=== PATIENT | female | born 1930 | race Hispanic/Latino ===

== ENCOUNTER 2018-04-19 04:16 | Inpatient (IN) | payer MEDICARE, OTHER ==
--- NOTE | 2018-04-19 04:26 | Emergency Department Report ---
ED General Adult HPI - General Chief complaint: Dyspnea/Respdistress Stated complaint: SOB/COPD Time Seen by Provider: 04/19/18 04:24 Source: EMS Mode of arrival: Stretcher Limitations: No Limitations - History of Present Illness Initial comments: 87-year-old female with a history of COPD presents with acute onset of shortness of breath. They sent was recently discharged from an outside hospital 15 days ago. Patient was then transitioned to [facility] and then yesterday was transitioning [facility] assisted living. Patient at 12 am yesterday became acutely short of breath and 2 AM was transitioning over to the emergency room for evaluation. Patient upon arrival here was noted be hypotensive. Family later arrived and stated that patient was to receive continuous oxygen therapy which she was not receiving. Currently patient denies any fever or any chest pain. - Related Data Allergies Allergy/AdvReac Type Severity Reaction Status Date / Time codeine AdvReac Hives Verified 04/19/18 04:31 ED Review of Systems ROS: Stated complaint: SOB/COPD Other details as noted in HPI Constitutional: denies: chills, fever Eyes: denies: eye pain, eye discharge, vision change ENT: denies: ear pain, throat pain Respiratory: SOB at rest. denies: cough, shortness of breath, wheezing Cardiovascular: denies: chest pain, palpitations Endocrine: no symptoms reported Gastrointestinal: denies: abdominal pain, nausea, diarrhea Genitourinary: denies: urgency, dysuria, discharge Musculoskeletal: denies: back pain, joint swelling, arthralgia Skin: denies: rash, lesions Neurological: denies: headache, weakness, paresthesias Psychiatric: denies: anxiety, depression Hematological/Lymphatic: denies: easy bleeding, easy bruising ED Physical Exam - General Limitations: No Limitations General appearance: alert, other (frail; dehydrated) - Head Head exam: Present: atraumatic, normocephalic - Eye Eye exam: Present: normal appearance - ENT ENT exam: Present: mucous membranes dry - Neck Neck exam: Present: normal inspection - Respiratory Respiratory exam: Present: other (course breath sounds in the bilateral bases of the lung). Absent: respiratory distress - Cardiovascular Cardiovascular Exam: Present: regular rate, normal rhythm. Absent: systolic murmur, diastolic murmur, rubs, gallop - GI/Abdominal GI/Abdominal exam: Present: soft, normal bowel sounds - Extremities Exam Extremities exam: Present: normal inspection - Back Exam Back exam: Present: normal inspection - Neurological Exam Neurological exam: Present: alert, oriented X3 - Psychiatric Psychiatric exam: Present: normal affect, normal mood - Skin Skin exam: Present: warm, dry, intact, normal color. Absent: rash ED Course Vital Signs 04/19/18 04/19/18 04/19/18 04:02 04:18 04:23 Temperature 98.1 F Pulse Rate 117 H 130 H 121 H Respiratory 26 H 26 H 22 Rate Blood Pressure 86/52 O2 Sat by Pulse 100 100 96 Oximetry 04/19/18 04/19/18 04/19/18 04:31 04:32 04:45 Temperature Pulse Rate 119 H 120 H Respiratory 33 H 26 H 30 H Rate Blood Pressure 101/55 O2 Sat by Pulse 97 100 98 Oximetry 04/19/18 04/19/18 04/19/18 05:00 05:15 05:30 Temperature Pulse Rate 113 H 118 H 112 H Respiratory 19 32 H 30 H Rate Blood Pressure 94/55 108/51 87/49 O2 Sat by Pulse 97 99 99 Oximetry 04/19/18 04/19/18 04/19/18 05:45 06:00 06:15 Temperature Pulse Rate 107 H 109 H 108 H Respiratory 24 30 H 28 H Rate Blood Pressure 113/61 85/50 85/50 O2 Sat by Pulse 100 99 100 Oximetry 04/19/18 06:30 Temperature Pulse Rate 108 H Respiratory 28 H Rate Blood Pressure 96/51 O2 Sat by Pulse 98 Oximetry ED Medical Decision Making - Lab Data Result diagrams: 04/19/18 04:38 04/19/18 04:38 - EKG Data EKG shows normal: sinus rhythm Rate: tachycardia - EKG Data Interpretation: nonspecific ST-T wave caio - Medical Decision Making Patient to be admitted to the hospitalist service for continued management and treatment. Patient was noted to be hypotensive initially on arrival and responded with MAP >65 with administration of IV fluids. Pateint was also noted to have the presence of UTI. Patient received ceftriaxone therapy while in the emergency department. Patient also given supplemental oxygen by nasal cannula while in the emergency department. - Differential Diagnosis pneumonia; electrolyte abnormality; anemia; COPD exacerbation Critical care attestation.: If time is entered above; I have spent that time in minutes in the direct care of this critically ill patient, excluding procedure time. ED Disposition Clinical Impression: COPD exacerbation, UTI (urinary tract infection), Hypotension Disposition: DC-09 OP ADMIT IP TO THIS HOSP Is pt being admited?: Yes Condition: Fair Instructions: Chronic Obstructive Pulmonary Disease (ED) Referrals: NESHA FRIEDMAN MD [Primary Care Provider] - 3-5 Days Time of Disposition: 07:05 Print Language: SERBIAN
[2018-04-19] MEDS ORDERED: NACL 0.9% 1000 ML 1,000 ML ONE (04:29)
[2018-04-19] MEDS ORDERED: NACL 0.9% 500 ML 500 ML IV ONE (04:31)
[2018-04-19] MEDS ORDERED: NACL 0.9% 1000 ML 1,000 ML IV ONE (04:40)
[2018-04-19 04:58] LABS: Basophils % (Auto) 0.3 % (0.0-1.8); Eosinophils % (Auto) 0.1 % (0.0-4.3); Hematocrit 31.8 % (30.3-42.9); Hemoglobin 10.1 gm/dl (10.1-14.3); Lymphocytes # (Auto) 0.6 K/mm3 (1.2-5.4); Lymphocytes % (Auto) 7.7 % (13.4-35.0); Mean Corpuscular HGB Conc 32 % (30-34); Mean Corpuscular Volume 97 fl (79-97); Monocytes # (Auto) 0.5 K/mm3 (0.0-0.8); Monocytes % (Auto) 6.8 % (0.0-7.3); Platelet Count 223 K/mm3 (140-440); Red Blood Count 3.27 M/mm3 (3.65-5.03); Red Cell Distribution Width 14.6 % (13.2-15.2)
[2018-04-19 05:11] LABS: INR 1.04 (0.87-1.13)
[2018-04-19 05:19] LABS: Alanine Aminotransferase 21 units/L (7-56); Albumin 2.7 g/dL (3.9-5); BUN/Creatinine Ratio 14; Blood Urea Nitrogen 11 mg/dL (7-17); Calcium 8.3 mg/dL (8.4-10.2); Hemolysis Index 10
[2018-04-19 05:39] LABS: Bacteria,Urine 2+ /HPF (Negative); Bilirubin,Urine NEG (Negative); Blood,Urine NEG (Negative); Color,Urine Yellow (Yellow); Hyaline Casts,Urine 13 /LPF; Mucus,Urine FEW /HPF; Protein,Urine <15 mg/dL mg/dL (Negative); Urobilinogen,Urine < 2.0 mg/dL (<2.0)
[2018-04-19] MEDS ORDERED: XYLOCAINE 1% MPF 5 mL INFILTRATI ONE (06:05)
--- NOTE | 2018-04-19 06:07 | XRay Report ---
FINAL REPORT EXAM: XR CHEST 1V AP HISTORY: possible Sepsis TECHNIQUE: AP portable view(s) of the chest obtained. PRIORS: None. FINDINGS: Patient is rotated. No mediastinal shift. Cardiac silhouette is not enlarged. Elevated right hemidiap hragm. Predominantly linear right basilar atelectasis versus scarring. No pneumothorax or effusion. N o displaced fracture. IMPRESSION: No acute pulmonary finding identified. Consider additional imaging for worsening/persistent symptoms.
[2018-04-19] MEDS ORDERED: VANCOMYCIN/NS 1 GM/250 ML 1 GM/250 ML BAG IV ONE ×2 (06:32→08:00)
[2018-04-19] MEDS ORDERED: ZOFRAN IV PRN (06:33)
[2018-04-19] MEDS ORDERED: SODIUM CHLORIDE FLUSH SYRINGE 10 ML IV PRN (06:33)
--- NOTE | 2018-04-19 06:41 | History and Physical Report ---
History of Present Illness Date of examination: 04/19/18 History of present illness: 87-year-old woman with a history of COPD comes emergency room because she woke up from sleep short of breath. Daughter at bedside state that she was in the hospital 10 days at [facility], she was discharged to rehabilitation for 2 weeks and then transferred to the assisted living yesterday. On Tuesday she was diagnosed with a urinary tract infection and treated for 3 days. Patient came in hypotensive with systolic blood pressure of 85, she was given IV fluids to which she responded Review of systems Constitutional: no weight loss, chills, fever Ears, eyes, nose, mouth and throat: no nasal congestion, no nasal discharge, no sinus pressure, no vision change, no red eye. Neck: No neck pain or rigidity. Cardiovascular: no palpitations, chest pain Respiratory: no cough Gastrointestinal: no hematochezia, abdominal pain Genitourinary : no frequency , no hematuria Musculoskeletal: no joint swelling or muscle ache Integumentary: no rash, no pruritis Neurological: no parathesias, no focal weakness Endocrine: no cold or heat intolerance, no polyuria or polydipsia Hematologic/Lymphatic: no easy bruising, no easy bleeding, no gland swelling Allergic/Immunologic: no urticaria, no angioedema. PAST MEDICAL HISTORY:COPD PAST SURGICAL HISTORY: Appendectomy, cyst removed from uterus SOCIAL HISTORY: Denies alcohol, drugs, quit tobacco use tobacco FAMILY HISTORY: Hypertension Medications and Allergies Allergies Allergy/AdvReac Type Severity Reaction Status Date / Time codeine AdvReac Hives Verified 04/19/18 04:31 Active Meds: Active Medications Acetaminophen (Tylenol) 650 mg PO Q4H PRN PRN Reason: Pain MILD(1-3)/Fever >100.5/BOWMAN Enoxaparin Sodium (Lovenox) 30 mg SUB-Q QDAY HARLEY Ceftriaxone Sodium (Rocephin/Ns 1 Gm/50 Ml) 1 gm in 50 mls @ 100 mls/hr IV ONCE ONE Stop: 04/19/18 07:29 Vancomycin HCl (Vancomycin/Ns 1 Gm/250 Ml) 1 gm in 250 mls @ 167.007 mls/hr IV ONCE ONE; Protocol Stop: 04/19/18 08:01 Sodium Chloride (Nacl 0.9% 1000 Ml) 1,000 mls @ 75 mls/hr IV DIRECT HARLEY Piperacillin Sod/Tazobactam Sod (Zosyn/Ns 3.375gm/50ml) 3.375 gm in 50 mls @ 100 mls/hr IV Q8HR HARLEY; Protocol Ondansetron HCl (Zofran) 4 mg IV Q8H PRN PRN Reason: Nausea And Vomiting Sodium Chloride (Sodium Chloride Flush Syringe 10 Ml) 10 ml IV BID HARLEY Sodium Chloride (Sodium Chloride Flush Syringe 10 Ml) 10 ml IV PRN PRN PRN Reason: LINE FLUSH Exam - Physical Exam Narrative exam: General Apperance: The patient lying in bed, breathing comfortable HEENT: Normocephalic, atraumatic. Pupils equally round and reactive to light, EOMI, no sclericterus or JVD or thyromegaly or nodule. , no carotid bruit, mucous membranes moist, no exudate or erythema Heart: S1-S2, regular is rhythm Lungs: Rhonchi bilaterally, breathing comfortable Abdomen: Positive bowel sounds, soft, nontender, nondistended, no organomegaly Extremities: No edema cyanosis clubbing Skin: no rash, nodule, warm and dry Neuro: cranial nerves 2-12 intact, speech is fluent, motor/sensory intact - Constitutional Vitals: Temp Pulse Resp BP Pulse Ox 98.1 F 107 H 24 113/61 100 04/19/18 04:18 04/19/18 05:45 04/19/18 05:45 04/19/18 05:45 04/19/18 05:45 Results - Labs CBC & Chem 7: 04/19/18 04:38 04/19/18 04:38 Labs: Abnormal lab results 04/19/18 04/19/18 04/19/18 Range/Units 04:38 04:38 04:38 RBC 3.27 L (3.65-5.03) M/mm3 Lymph % (Auto) 7.7 L (13.4-35.0) % Lymph # 0.6 L (1.2-5.4) K/mm3 Seg Neutrophils % 85.1 H (40.0-70.0) % VBG pH (7.320-7.420) Sodium 136 L (137-145) mmol/L Glucose 117 H (65-100) mg/dL Lactic Acid 2.10 H* (0.7-2.0) mmol/L Calcium 8.3 L (8.4-10.2) mg/dL Total Protein 5.8 L (6.3-8.2) g/dL Albumin 2.7 L (3.9-5) g/dL Urine WBC (Auto) (0.0-6.0) /HPF 04/19/18 04/19/18 Range/Units 04:38 05:24 RBC (3.65-5.03) M/mm3 Lymph % (Auto) (13.4-35.0) % Lymph # (1.2-5.4) K/mm3 Seg Neutrophils % (40.0-70.0) % VBG pH 7.463 H (7.320-7.420) Sodium (137-145) mmol/L Glucose (65-100) mg/dL Lactic Acid (0.7-2.0) mmol/L Calcium (8.4-10.2) mg/dL Total Protein (6.3-8.2) g/dL Albumin (3.9-5) g/dL Urine WBC (Auto) 8.0 H (0.0-6.0) /HPF - Imaging and Cardiology EKG: image reviewed Chest x-ray: report reviewed Assessment and Plan Assessment Septic shock Urinary Tract infection Shortness of breath, rule out PE COPD Plan Admit to medicine Start IV Zosyn, given a dose of vancomycin follow cultures Check CT chest, cardiac enzymes DVT prophylaxis
[2018-04-19] MEDS ORDERED: ZOSYN/NS 3.375GM/50ML 3.375 GM/50 ML BAG IV SCH ×2 (07:00→14:00)
[2018-04-19] MEDS ORDERED: ROCEPHIN/NS 1 GM/50 ML 1 GM/50 ML BAG IV ONE (07:00)
[2018-04-19] MEDS ORDERED: ROCEPHIN 1,000 MG in NACL 0.9% 50 ML IV ONE (07:00)
[2018-04-19 08:19] LABS: Creatine Kinase MB 7.5 ng/mL (0.0-4.0)
[2018-04-19 08:52] LABS: Chol/HDL Ratio 3.21 %
--- NOTE | 2018-04-19 09:54 | Cat Scan Report ---
FINAL REPORT EXAM: CT ANGIO CHEST HISTORY: Shortness of breath TECHNIQUE: CT angiography of the chest performed. IV contrast was administered. Axial images and cor onal and sagittal reformatted images were obtained. MIP reformatted rotational imaging was obtained. PRIORS: None. FINDINGS: There is no aortic dissection seen. There is no significant mediastinal or hilar mass seen. There are no filling defects seen within the pulmonary arterial circulation to suggest pulmonary embo lism. There is a small right pleural effusion. There is right lower lobe consolidation which is worrisome f or pneumonia. There is a 4 mm nodule in the left lower lobe. Significance is doubtful. No further fol low-up needed for Fleischner society guidelines. There is no pneumothorax seen. IMPRESSION: There is no pulmonary embolism or aortic dissection seen. Right lower lobe area of consolidation with small right pleural effusion. Findings are worrisome for pneumonia.
[2018-04-19] MEDS ORDERED: LOVENOX SUB-Q SCH (10:00)
--- NOTE | 2018-04-19 10:57 | Event Note ---
Date: 04/19/18 Patient seen and examined. We'll continue the plan as outlined in H&P. CTA of the chest reveals no PE or aortic dissection. However, findings are suggestive of right lower lobe pneumonia with parapneumonic effusion. Patient meets criteria for sepsis given the tachycardia, tachypnea and diagnosis of pneumonia. Total time = 25 minutes with greater than 50% spent with counseling and correlation of care.
[2018-04-19] MEDS: SODIUM CHLORIDE FLUSH SYRINGE 10 ML IV SCH ×2 (11:49→21:18)
[2018-04-19] MEDS: LOVENOX SUB-Q SCH (13:07)
[2018-04-19 13:12] LABS: Creatine Kinase MB 10.4 ng/mL (0.0-4.0)
[2018-04-19] MEDS ORDERED: DUONEB *Not for PRN Use IH ONE (13:31)
--- NOTE | 2018-04-19 15:35 | Consultation ---
History of Present Illness Consult date: 04/19/18 Requesting physician: GIACOMO LEON Consult reason: abnormal cardiac enzymes History of present illness: The pt is an 87-year-old female with a history of COPD. She is previously unknown to our practice. She is lethargic with no family at bedside on evaluation and thus most of HPI is obtained per the chart. She presented with complaints of SOB. presents with acute onset of shortness of breath. She was recently discharged from an outside hospital 15 days ago. Patient was then transitioned to [facility] and then was transitioning to [facility] when she became acutely short of breath and 2 AM was transitioned over to the emergency room for evaluation. Since admission, pt has been diagnosed with PNA, sepsis, hypotension. She was found to have elevated cardiac enzymes and thus cardiology has been consulted. Pt denies any chest pain. Past History Past Medical History: COPD Medications and Allergies Allergies Allergy/AdvReac Type Severity Reaction Status Date / Time codeine AdvReac Hives Verified 04/19/18 04:31 Home Medications Medication Instructions Recorded Confirmed Last Taken Type Albuterol 1.25 mg IH Q4-6H PRN 04/19/18 04/19/18 04/18/18 10:00 History Budesonide [Pulmicort] 0.5 mg IH BID 04/19/18 04/19/18 04/19/18 00:00 History DUONEB *Not for PRN Use* 1 ampul INHALATION QID 04/19/18 04/19/18 04/19/18 02:00 History Furosemide [Lasix TAB] 20 mg PO DAILY 04/19/18 04/19/18 04/18/18 09:00 History Levothyroxine [Synthroid] 75 mcg PO QAM 04/19/18 04/19/18 04/18/18 06:30 History Active Meds: Active Medications Acetaminophen (Tylenol) 650 mg PO Q4H PRN PRN Reason: Pain MILD(1-3)/Fever >100.5/BOWMAN Albuterol (Proventil) 2.5 mg IH PRN PRN PRN Reason: Shortness Of Breath Albuterol/Ipratropium (Duoneb *Not For Prn Use*) 1 ampul IH QIDRT HARLEY Budesonide (Pulmicort) 0.25 mg IH Q12HRT HARLEY Enoxaparin Sodium (Lovenox) 40 mg SUB-Q QDAY@1000 HARLEY Last Admin: 04/19/18 13:07 Dose: Not Given Documented by: Sodium Chloride (Nacl 0.9% 1000 Ml) 1,000 mls @ 75 mls/hr IV DIRECT [facility] Piperacillin Sod/Tazobactam Sod (Zosyn/Ns 3.375gm/50ml) 3.375 gm in 50 mls @ 100 mls/hr IV Q8HR [facility] Ondansetron HCl (Zofran) 4 mg IV Q8H PRN PRN Reason: Nausea And Vomiting Sodium Chloride (Sodium Chloride Flush Syringe 10 Ml) 10 ml IV BID [facility] Last Admin: 04/19/18 11:49 Dose: 10 ml Documented by: Sodium Chloride (Sodium Chloride Flush Syringe 10 Ml) 10 ml IV PRN PRN PRN Reason: LINE FLUSH Review of Systems ROS unobtainable: due to mental status Cardiovascular: no chest pain Physical Examination Vital Signs Pulse Resp Pulse Ox 117 H 26 H 100 04/19/18 04:02 04/19/18 04:02 04/19/18 04:02 General appearance: other (lethargic) HEENT: Positive: PERRL Neck: Positive: neck supple, trachea midline Cardiac: Positive: Regular Rhythm, S1/S2 Lungs: Positive: Decreased Breath Sounds, Rhonchi Neuro: Positive: Other (lethargic) Abdomen: Negative: Tender Skin: Negative: Rash, Wound Musculoskeletal: No Pain Extremities: Absent: edema Results 04/19/18 04:38 04/19/18 04:38 Cardiac Enzymes 04/19/18 04/19/18 04/19/18 Range/Units 04:38 04:38 12:24 AST 37 (5-40) units/L CK-MB (CK-2) 7.5 H 10.4 H (0.0-4.0) ng/mL Coagulation 04/19/18 Range/Units 04:38 PT 14.0 (12.2-14.9) Sec. INR 1.04 (0.87-1.13) Lipids 04/19/18 Range/Units 04:38 Triglycerides 72 (2-149) mg/dL Cholesterol 122 (50-199) mg/dL HDL Cholesterol 38 L (40-59) mg/dL Cholesterol/HDL Ratio 3.21 % CBC 04/19/18 Range/Units 04:38 WBC 7.7 (4.5-11.0) K/mm3 RBC 3.27 L (3.65-5.03) M/mm3 Hgb 10.1 (10.1-14.3) gm/dl Hct 31.8 (30.3-42.9) % Plt Count 223 (140-440) K/mm3 Lymph # 0.6 L (1.2-5.4) K/mm3 [place] # 0.5 (0.0-0.8) K/mm3 Eos # 0.0 (0.0-0.4) K/mm3 Baso # 0.0 (0.0-0.1) K/mm3 Comprehensive Metabolic Panel 04/19/18 Range/Units 04:38 Sodium 136 L (137-145) mmol/L Potassium 4.8 (3.6-5.0) mmol/L Chloride 98.6 (98-107) mmol/L Carbon Dioxide 26 (22-30) mmol/L BUN 11 (7-17) mg/dL Creatinine 0.8 (0.7-1.2) mg/dL Glucose 117 H (65-100) mg/dL Calcium 8.3 L (8.4-10.2) mg/dL AST 37 (5-40) units/L ALT 21 (7-56) units/L Alkaline Phosphatase 76 (35-129) units/L Total Protein 5.8 L (6.3-8.2) g/dL Albumin 2.7 L (3.9-5) g/dL - Imaging and Cardiology Echo: pending EKG: report reviewed, image reviewed EKG interpretations - Telemetry EKG Rhythm: Sinus Rhythm - EKG Sinus rhythms and dysrhythmias: sinus rhythm Assessment and Plan Pt denies chest pain, ECG with no acute ischemic changes. Repeat Carol and ECG in AM. CE elevation appears c/w NSTEMI type II at this time. IVF and abx per primary. Consider vasopressor support to maintain MAP >60mmHg. Obtain echo. The patient has been seen in conjunction with Dr. ELISABETH Gonzalez who agrees with the assessment and plan of care. - Patient Problems (1) Pneumonia Current Visit: Yes Status: Acute (2) Sepsis Current Visit: Yes Status: Suspected (3) Hypotension Current Visit: Yes Status: Acute (4) Altered mental status Current Visit: Yes Status: Acute (5) NSTEMI (non-ST elevated myocardial infarction) Current Visit: Yes Status: Acute (6) COPD (chronic obstructive pulmonary disease) Current Visit: Yes Status: Chronic
[2018-04-19] MEDS: NACL 0.9% 1000 ML 1,000 ML IV SCH (16:23)
[2018-04-19] MEDS: ZOSYN/NS 3.375GM/50ML 3.375 GM/50 ML BAG IV SCH ×2 (16:24→21:18)
[2018-04-19] MEDS: DUONEB *Not for PRN Use IH SCH ×2 (18:08→21:32)
[2018-04-19] MEDS: TYLENOL PO PRN (21:20)
[2018-04-19] MEDS: PULMICORT IH SCH (21:32)
[2018-04-20] MEDS ORDERED: NACL 0.9% 500 ML 500 ML ONE (03:21)
[2018-04-20] MEDS: PROVENTIL IH PRN (04:45)
[2018-04-20 05:16] LABS: Hematocrit 30.1 % (30.3-42.9); Hemoglobin 9.8 gm/dl (10.1-14.3); Mean Corpuscular HGB Conc 33 % (30-34); Mean Corpuscular Volume 94 fl (79-97); Platelet Count 218 K/mm3 (140-440); Red Cell Distribution Width 14.4 % (13.2-15.2)
[2018-04-20 05:34] LABS: Creatine Kinase MB 11.7 ng/mL (0.0-4.0)
[2018-04-20 05:36] LABS: BUN/Creatinine Ratio 13; Blood Urea Nitrogen 8 mg/dL (7-17); Calcium 7.9 mg/dL (8.4-10.2); Hemolysis Index 16
[2018-04-20] MEDS: NACL 0.9% 1000 ML 1,000 ML IV SCH ×2 (05:41→19:06)
[2018-04-20 06:54] LABS: Band Neutrophils # (Manual) 0.1 K/mm3; Basophils % (Manual) 0 % (0.0-1.8); Eosinophils % (Manual) 0 % (0.0-4.3); Total Cells Counted 100
[2018-04-20 06:55] LABS: Anisocytosis 1+; Hypochromasia 1+
[2018-04-20] MEDS: DUONEB *Not for PRN Use IH SCH ×4 (09:30→21:05)
[2018-04-20] MEDS: PULMICORT IH SCH (09:56)
[2018-04-20] MEDS: LOVENOX SUB-Q SCH (11:10)
[2018-04-20] MEDS: ZOSYN/NS 3.375GM/50ML 3.375 GM/50 ML BAG IV SCH ×2 (11:11→22:41)
--- NOTE | 2018-04-20 12:53 | Progress Note ---
Assessment and Plan Assessment and plan: Sepsis. Present on admission. Patient is criteria given the tachycardia, tachypnea and diagnosis of pneumonia. Continue sepsis pathway and follow-up blood cultures. Right lower lobe pneumonia with parapneumonic effusion. Continue IV antibiotics. Speech therapy evaluation. Follow up serial chest x-ray NSTEMI type II. Etiology secondary to above. Continue to follow repeat cardiac isoenzymes and EKG. Initial EKG shows no acute ischemic changes. Follow-up echocardiogram. Cardiology following. Acute hypoxemic respiratory failure. CTA of chest is negative for PE. Etiology secondary to pneumonia/pleural effusion. Continue O2 and supportive care. Acute COPD exacerbation. Continue systemic and inhaled steroids, bronchodilators and breathing treatments. Toxic metabolic encephalopathy. Continue to treat underlying causes. History Interval history: The pt is an 87-year-old female with a history of COPD. She is previously unknown to our practice. She is lethargic with no family at bedside on evaluation and thus most of HPI is obtained per the chart. She presented with complaints of SOB. presents with acute onset of shortness of breath. She was recently discharged from an outside hospital 15 days ago. Patient was then transitioned to [facility] and then was transitioning to [facility] assisted living when she became acutely short of breath and 2 AM was transitioned over to the emergency room for evaluation. Since admission, pt has been diagnosed with PNA, sepsis, hypotension. She was found to have elevated cardiac enzymes and thus cardiology has been consulted. Patient denies any complaints. No new issues overnight. Hospitalist Physical - Constitutional Vitals: Temp Pulse Resp BP Pulse Ox 97.4 F L 112 H 28 H 86/52 98 04/20/18 12:26 04/20/18 10:10 04/20/18 10:10 04/19/18 15:50 04/20/18 09:31 General appearance: Present: other (lethargic) - EENT Eyes: Present: PERRL, EOM intact ENT: hearing intact, clear oral mucosa, dentition normal - Neck Neck: Present: supple, normal ROM - Respiratory Respiratory effort: normal Respiratory: bilateral: diminished, rhonchi, wheezing - Cardiovascular Rhythm: regular Heart Sounds: Present: S1 & S2. Absent: gallop, rub - Extremities Extremities: no ischemia, No edema, Full ROM - Abdominal General gastrointestinal: soft, non-tender, non-distended, normal bowel sounds - Integumentary Integumentary: Present: clear, warm, dry - Neurologic Neurologic: CNII-XII intact, moves all extremities Results - Labs CBC & Chem 7: 04/20/18 04:25 04/20/18 04:25 Labs: Laboratory Last Values WBC 4.8 K/mm3 (4.5-11.0) 04/20/18 04:25 RBC 3.20 M/mm3 (3.65-5.03) L 04/20/18 04:25 Hgb 9.8 gm/dl (10.1-14.3) L 04/20/18 04:25 Hct 30.1 % (30.3-42.9) L 04/20/18 04:25 MCV 94 fl (79-97) 04/20/18 04:25 MCH 31 pg (28-32) 04/20/18 04:25 MCHC 33 % (30-34) 04/20/18 04:25 RDW 14.4 % (13.2-15.2) 04/20/18 04:25 Plt Count 218 K/mm3 (140-440) 04/20/18 04:25 Lymph % (Auto) 7.7 % (13.4-35.0) L 04/19/18 04:38 [place] % (Auto) 6.8 % (0.0-7.3) 04/19/18 04:38 Eos % (Auto) 0.1 % (0.0-4.3) 04/19/18 04:38 Baso % (Auto) 0.3 % (0.0-1.8) 04/19/18 04:38 Lymph # 0.6 K/mm3 (1.2-5.4) L 04/19/18 04:38 [place] # 0.5 K/mm3 (0.0-0.8) 04/19/18 04:38 Eos # 0.0 K/mm3 (0.0-0.4) 04/19/18 04:38 Baso # 0.0 K/mm3 (0.0-0.1) 04/19/18 04:38 Add Manual Diff Complete 04/20/18 04:25 Total Counted 100 04/20/18 04:25 Seg Neutrophils % 85.1 % (40.0-70.0) H 04/19/18 04:38 Seg Neuts % (Manual) 58.0 % (40.0-70.0) 04/20/18 04:25 Band Neutrophils % 3.0 % 04/20/18 04:25 Lymphocytes % (Manual) 32.0 % (13.4-35.0) 04/20/18 04:25 Reactive Lymphs % (Man) 0 % 04/20/18 04:25 Monocytes % (Manual) 7.0 % (0.0-7.3) 04/20/18 04:25 Eosinophils % (Manual) 0 % (0.0-4.3) 04/20/18 04:25 Basophils % (Manual) 0 % (0.0-1.8) 04/20/18 04:25 Metamyelocytes % 0 % 04/20/18 04:25 Myelocytes % 0 % 04/20/18 04:25 Promyelocytes % 0 % 04/20/18 04:25 Blast Cells % 0 % 04/20/18 04:25 Nucleated RBC % Not Reportable 04/20/18 04:25 Seg Neutrophils # 6.6 K/mm3 (1.8-7.7) 04/19/18 04:38 Seg Neutrophils # Man 2.8 K/mm3 (1.8-7.7) 04/20/18 04:25 Band Neutrophils # 0.1 K/mm3 04/20/18 04:25 Lymphocytes # (Manual) 1.5 K/mm3 (1.2-5.4) 04/20/18 04:25 Abs React Lymphs (Man) 0.0 K/mm3 04/20/18 04:25 Monocytes # (Manual) 0.3 K/mm3 (0.0-0.8) 04/20/18 04:25 Eosinophils # (Manual) 0.0 K/mm3 (0.0-0.4) 04/20/18 04:25 Basophils # (Manual) 0.0 K/mm3 (0.0-0.1) 04/20/18 04:25 Metamyelocytes # 0.0 K/mm3 04/20/18 04:25 Myelocytes # 0.0 K/mm3 04/20/18 04:25 Promyelocytes # 0.0 K/mm3 04/20/18 04:25 Blast Cells # 0.0 K/mm3 04/20/18 04:25 WBC Morphology Not Reportable 04/20/18 04:25 Hypersegmented Neuts Not Reportable 04/20/18 04:25 Hyposegmented Neuts Not Reportable 04/20/18 04:25 Hypogranular Neuts Not Reportable 04/20/18 04:25 Smudge Cells Not Reportable 04/20/18 04:25 Toxic Granulation Not Reportable 04/20/18 04:25 Toxic Vacuolation Not Reportable 04/20/18 04:25 Dohle Bodies Not Reportable 04/20/18 04:25 Pelger-Huet Anomaly Not Reportable 04/20/18 04:25 Juan Alberto Rods Not Reportable 04/20/18 04:25 Platelet Estimate Appears normal 04/20/18 04:25 Clumped Platelets Not Reportable 04/20/18 04:25 Plt Clumps, EDTA Not Reportable 04/20/18 04:25 Large Platelets Not Reportable 04/20/18 04:25 Giant Platelets Not Reportable 04/20/18 04:25 Platelet Satelliting Not Reportable 04/20/18 04:25 Plt Morphology Comment Not Reportable 04/20/18 04:25 RBC Morphology Not Reportable 04/20/18 04:25 Dimorphic RBCs Not Reportable 04/20/18 04:25 Polychromasia Not Reportable 04/20/18 04:25 Hypochromasia 1+ 04/20/18 04:25 Poikilocytosis Not Reportable 04/20/18 04:25 Anisocytosis 1+ 04/20/18 04:25 Microcytosis Not Reportable 04/20/18 04:25 Macrocytosis Not Reportable 04/20/18 04:25 Spherocytes Not Reportable 04/20/18 04:25 Pappenheimer Bodies Not Reportable 04/20/18 04:25 Sickle Cells Not Reportable 04/20/18 04:25 Target Cells Not Reportable 04/20/18 04:25 Tear Drop Cells Not Reportable 04/20/18 04:25 Ovalocytes Not Reportable 04/20/18 04:25 Helmet Cells Not Reportable 04/20/18 04:25 [place] Bodies Not Reportable 04/20/18 04:25 [place] Rings Not Reportable 04/20/18 04:25 [place] Cells Not Reportable 04/20/18 04:25 Bite Cells Not Reportable 04/20/18 04:25 Crenated Cell Not Reportable 04/20/18 04:25 Elliptocytes Not Reportable 04/20/18 04:25 Acanthocytes (Spur) Not Reportable 04/20/18 04:25 Rouleaux Not Reportable 04/20/18 04:25 Hemoglobin C Crystals Not Reportable 04/20/18 04:25 Schistocytes Not Reportable 04/20/18 04:25 Malaria parasites Not Reportable 04/20/18 04:25 Adonay Bodies Not Reportable 04/20/18 04:25 Hem Pathologist Commnt No 04/20/18 04:25 PT 14.0 Sec. (12.2-14.9) 04/19/18 04:38 INR 1.04 (0.87-1.13) 04/19/18 04:38 VBG pH 7.463 (7.320-7.420) H 04/19/18 04:38 Sodium 139 mmol/L (137-145) 04/20/18 04:25 Potassium 4.4 mmol/L (3.6-5.0) 04/20/18 04:25 Chloride 106.8 mmol/L (98-107) 04/20/18 04:25 Carbon Dioxide 22 mmol/L (22-30) 04/20/18 04:25 Anion Gap 15 mmol/L 04/20/18 04:25 BUN 8 mg/dL (7-17) 04/20/18 04:25 Creatinine 0.6 mg/dL (0.7-1.2) L 04/20/18 04:25 Estimated GFR > 60 ml/min 04/20/18 04:25 BUN/Creatinine Ratio 13 % 04/20/18 04:25 Glucose 83 mg/dL (65-100) 04/20/18 04:25 Lactic Acid 1.10 mmol/L (0.7-2.0) 04/19/18 12:24 Calcium 7.9 mg/dL (8.4-10.2) L 04/20/18 04:25 Total Bilirubin 0.20 mg/dL (0.1-1.2) 04/19/18 04:38 AST 37 units/L (5-40) 04/19/18 04:38 ALT 21 units/L (7-56) 04/19/18 04:38 Alkaline Phosphatase 76 units/L (35-129) 04/19/18 04:38 Total Creatine Kinase 66 units/L (30-135) 04/20/18 04:25 CK-MB (CK-2) 11.7 ng/mL (0.0-4.0) H 04/20/18 04:25 CK-MB (CK-2) Rel Index 17.7 (0-4) H 04/20/18 04:25 Troponin T 0.271 ng/mL (0.00-0.029) H* D 04/20/18 04:25 Total Protein 5.8 g/dL (6.3-8.2) L 04/19/18 04:38 Albumin 2.7 g/dL (3.9-5) L 04/19/18 04:38 Albumin/Globulin Ratio 0.9 % 04/19/18 04:38 Triglycerides 72 mg/dL (2-149) 04/19/18 04:38 Cholesterol 122 mg/dL (50-199) 04/19/18 04:38 LDL Cholesterol Direct 81 mg/dL (50-130) 04/19/18 04:38 HDL Cholesterol 38 mg/dL (40-59) L 04/19/18 04:38 Cholesterol/HDL Ratio 3.21 % 04/19/18 04:38 Urine Color Yellow (Yellow) 04/19/18 05:24 Urine Turbidity Clear (Clear) 04/19/18 05:24 Urine pH 5.0 (5.0-7.0) 04/19/18 05:24 Ur Specific [place] 1.014 (1.003-1.030) 04/19/18 05:24 Urine Protein <15 mg/dl mg/dL (Negative) 04/19/18 05:24 Urine Glucose (UA) Neg mg/dL (Negative) 04/19/18 05:24 Urine Ketones Neg mg/dL (Negative) 04/19/18 05:24 Urine Blood Neg (Negative) 04/19/18 05:24 Urine Nitrite Neg (Negative) 04/19/18 05:24 Urine Bilirubin Neg (Negative) 04/19/18 05:24 Urine Urobilinogen < 2.0 mg/dL (<2.0) 04/19/18 05:24 Ur Leukocyte Esterase Tr (Negative) 04/19/18 05:24 Urine WBC (Auto) 8.0 /HPF (0.0-6.0) H 04/19/18 05:24 Urine RBC (Auto) 3.0 /HPF (0.0-6.0) 04/19/18 05:24 U Epithel Cells (Auto) 1.0 /HPF (0-13.0) 04/19/18 05:24 Urine Bacteria (Auto) 2+ /HPF (Negative) 04/19/18 05:24 Hyaline Casts 13 /LPF 04/19/18 05:24 Urine Mucus Few /HPF 04/19/18 05:24
--- NOTE | 2018-04-20 12:58 | Progress Note ---
Assessment and Plan Cont present cardiac management. Await echo. The patient has been seen in conjunction with Dr. Tierra Gonzalez who agrees with the assessment and plan of care. - Patient Problems (1) Pneumonia Current Visit: Yes Status: Acute (2) Sepsis Current Visit: Yes Status: Suspected (3) Hypotension Current Visit: Yes Status: Acute (4) Altered mental status Current Visit: Yes Status: Acute (5) NSTEMI (non-ST elevated myocardial infarction) Current Visit: Yes Status: Acute (6) COPD (chronic obstructive pulmonary disease) Current Visit: Yes Status: Chronic Subjective Date of service: 04/20/18 Principal diagnosis: PNA Interval history: pt resting in bed, appears more alert today. no current cardiac complaints. Objective Last Vital Signs Temp 97.4 F L 04/20/18 12:26 Pulse 112 H 04/20/18 10:10 Resp 28 H 04/20/18 10:10 BP 86/52 04/19/18 15:50 Pulse Ox 98 04/20/18 09:31 - Physical Examination General: No Apparent Distress HEENT: Positive: PERRL Neck: Positive: neck supple, trachea midline Cardiac: Positive: Reg Rate and Rhythm, S1/S2 Lungs: Positive: Decreased Breath Sounds Neuro: Positive: Other (lethargic) Abdomen: Negative: Tender Skin: Negative: Rash, Wound Musculoskeletal: No Pain Extremities: Absent: edema - Labs and Meds Cardiac Enzymes 04/19/18 04/20/18 Range/Units 12:24 04:25 CK-MB (CK-2) 10.4 H 11.7 H (0.0-4.0) ng/mL CBC 04/20/18 Range/Units 04:25 WBC 4.8 (4.5-11.0) K/mm3 RBC 3.20 L (3.65-5.03) M/mm3 Hgb 9.8 L (10.1-14.3) gm/dl Hct 30.1 L (30.3-42.9) % Plt Count 218 (140-440) K/mm3 Comprehensive Metabolic Panel 04/20/18 Range/Units 04:25 Sodium 139 (137-145) mmol/L Potassium 4.4 (3.6-5.0) mmol/L Chloride 106.8 (98-107) mmol/L Carbon Dioxide 22 (22-30) mmol/L BUN 8 (7-17) mg/dL Creatinine 0.6 L (0.7-1.2) mg/dL Glucose 83 (65-100) mg/dL Calcium 7.9 L (8.4-10.2) mg/dL - Imaging and Cardiology EKG: report reviewed, image reviewed Echo: pending - EKG Sinus rhythms and dysrhythmias: sinus rhythm
[2018-04-20] MEDS: SOLU-Medrol IV SCH ×2 (17:57→22:41)
[2018-04-20] MEDS: SODIUM CHLORIDE FLUSH SYRINGE 10 ML IV SCH ×2 (18:00→22:42)
[2018-04-20] MEDS ORDERED: PULMICORT IH SCH (22:00)
[2018-04-21] MEDS: PULMICORT IH SCH ×3 (02:45→20:48)
[2018-04-21] MEDS ORDERED: LASIX IV NR (03:04)
[2018-04-21] MEDS ORDERED: ATIVAN IV NR (03:05)
--- NOTE | 2018-04-21 03:14 | XRay Report ---
FINAL REPORT PROCEDURE: XR CHEST 1V AP TECHNIQUE: Chest radiograph anteroposterior view. CPT 37253 HISTORY: SOB COMPARISON: 04/19/2018 FINDINGS: Heart: Normal. Mediastinum/Vessels: Normal. Lungs/Pleural space: There are infiltrates at the right lung base. There is a small right pleural eff usion.. The left lung is clear and expanded. There are no pneumothoraces. Bony thorax: No acute osseous abnormality. Life support devices: None. IMPRESSION: The heart size is normal. There are infiltrates at the right lung base. There is a small right pleural effusion.. The left lung is clear and expanded. There are no pneumothoraces.
[2018-04-21 04:49] LABS: Hematocrit 31.9 % (30.3-42.9); Hemoglobin 10.4 gm/dl (10.1-14.3); Mean Corpuscular HGB Conc 33 % (30-34); Mean Corpuscular Volume 96 fl (79-97); Platelet Count 261 K/mm3 (140-440); Red Blood Count 3.34 M/mm3 (3.65-5.03)
[2018-04-21 05:09] LABS: BUN/Creatinine Ratio 10; Blood Urea Nitrogen 8 mg/dL (7-17); Calcium 8.2 mg/dL (8.4-10.2); Hemolysis Index 7
[2018-04-21 05:37] LABS: Band Neutrophils # (Manual) 0.4 K/mm3; Basophils % (Manual) 0 % (0.0-1.8); Eosinophils % (Manual) 0 % (0.0-4.3); Total Cells Counted 100
[2018-04-21 05:38] LABS: Anisocytosis 1+; Hypochromasia 1+; Large Platelets Rare
[2018-04-21] MEDS: ZOSYN/NS 3.375GM/50ML 3.375 GM/50 ML BAG IV SCH ×6 (06:31→22:15)
[2018-04-21] MEDS: SYNTHROID PO SCH (06:31)
[2018-04-21] MEDS: SOLU-Medrol IV SCH ×3 (06:31→22:09)
[2018-04-21] MEDS: DUONEB *Not for PRN Use IH SCH ×4 (08:46→20:48)
[2018-04-21] MEDS: SODIUM CHLORIDE FLUSH SYRINGE 10 ML IV SCH ×2 (10:18→22:10)
[2018-04-21] MEDS: LOVENOX SUB-Q SCH (10:18)
--- NOTE | 2018-04-21 12:31 | Progress Note ---
Assessment and Plan Assessment and plan: Sepsis. Present on admission. Patient is criteria given the tachycardia, tachypnea and diagnosis of pneumonia. Continue sepsis pathway and follow-up blood cultures. Right lower lobe pneumonia with parapneumonic effusion. Continue IV antibiotics. Speech therapy evaluation. Follow up serial chest x-ray NSTEMI type II. Etiology secondary to above. Continue to follow repeat cardiac isoenzymes and EKG. Initial EKG shows no acute ischemic changes. Follow-up echocardiogram. Cardiology following. Acute hypoxemic respiratory failure. CTA of chest is negative for PE. Etiology secondary to pneumonia/pleural effusion. Continue O2 and supportive care. Acute COPD exacerbation. Continue systemic and inhaled steroids, bronchodilators and breathing treatments. Toxic metabolic encephalopathy. Continue to treat underlying causes. History Interval history: The pt is an 87-year-old female with a history of COPD. She is previously unknown to our practice. She is lethargic with no family at bedside on evaluation and thus most of HPI is obtained per the chart. She presented with complaints of SOB. presents with acute onset of shortness of breath. She was recently discharged from an outside hospital 15 days ago. Patient was then transitioned to [facility] and then was transitioning to [facility] living when she became acutely short of breath and 2 AM was transitioned over to the emergency room for evaluation. Since admission, pt has been diagnosed with PNA, sepsis, hypotension. She was found to have elevated cardiac enzymes and thus cardiology has been consulted. Patient denies any complaints. No new issues overnight. Hospitalist Physical - Constitutional Vitals: Temp Pulse Resp BP Pulse Ox 97.4 F L 116 H 20 142/83 99 04/20/18 12:26 04/21/18 09:02 04/21/18 09:02 04/21/18 09:00 04/21/18 09:00 General appearance: Present: other (lethargic) - EENT Eyes: Present: PERRL, EOM intact ENT: hearing intact, clear oral mucosa, dentition normal - Neck Neck: Present: supple, normal ROM - Respiratory Respiratory effort: normal Respiratory: bilateral: CTA - Cardiovascular Rhythm: regular Heart Sounds: Present: S1 & S2. Absent: gallop, rub - Extremities Extremities: no ischemia, No edema, Full ROM - Abdominal General gastrointestinal: soft, non-tender, non-distended, normal bowel sounds - Integumentary Integumentary: Present: clear, warm, dry - Neurologic Neurologic: CNII-XII intact, moves all extremities Results - Labs CBC & Chem 7: 04/21/18 04:31 04/21/18 04:31 Labs: Laboratory Last Values WBC 2.1 K/mm3 (4.5-11.0) L 04/21/18 04:31 RBC 3.34 M/mm3 (3.65-5.03) L 04/21/18 04:31 Hgb 10.4 gm/dl (10.1-14.3) 04/21/18 04:31 Hct 31.9 % (30.3-42.9) 04/21/18 04:31 MCV 96 fl (79-97) 04/21/18 04:31 MCH 31 pg (28-32) 04/21/18 04:31 MCHC 33 % (30-34) 04/21/18 04:31 RDW 15.0 % (13.2-15.2) 04/21/18 04:31 Plt Count 261 K/mm3 (140-440) 04/21/18 04:31 Lymph % (Auto) 7.7 % (13.4-35.0) L 04/19/18 04:38 [place] % (Auto) 6.8 % (0.0-7.3) 04/19/18 04:38 Eos % (Auto) 0.1 % (0.0-4.3) 04/19/18 04:38 Baso % (Auto) 0.3 % (0.0-1.8) 04/19/18 04:38 Lymph # 0.6 K/mm3 (1.2-5.4) L 04/19/18 04:38 [place] # 0.5 K/mm3 (0.0-0.8) 04/19/18 04:38 Eos # 0.0 K/mm3 (0.0-0.4) 04/19/18 04:38 Baso # 0.0 K/mm3 (0.0-0.1) 04/19/18 04:38 Add Manual Diff Complete 04/21/18 04:31 Total Counted 100 04/21/18 04:31 Seg Neutrophils % 85.1 % (40.0-70.0) H 04/19/18 04:38 Seg Neuts % (Manual) 61.0 % (40.0-70.0) 04/21/18 04:31 Band Neutrophils % 18.0 % 04/21/18 04:31 Lymphocytes % (Manual) 16.0 % (13.4-35.0) 04/21/18 04:31 Reactive Lymphs % (Man) 0 % 04/21/18 04:31 Monocytes % (Manual) 3.0 % (0.0-7.3) 04/21/18 04:31 Eosinophils % (Manual) 0 % (0.0-4.3) 04/21/18 04:31 Basophils % (Manual) 0 % (0.0-1.8) 04/21/18 04:31 Metamyelocytes % 0 % 04/21/18 04:31 Myelocytes % 2.0 % 04/21/18 04:31 Promyelocytes % 0 % 04/21/18 04:31 Blast Cells % 0 % 04/21/18 04:31 Nucleated RBC % Not Reportable 04/21/18 04:31 Seg Neutrophils # 6.6 K/mm3 (1.8-7.7) 04/19/18 04:38 Seg Neutrophils # Man 1.3 K/mm3 (1.8-7.7) L 04/21/18 04:31 Band Neutrophils # 0.4 K/mm3 04/21/18 04:31 Lymphocytes # (Manual) 0.3 K/mm3 (1.2-5.4) L 04/21/18 04:31 Abs React Lymphs (Man) 0.0 K/mm3 04/21/18 04:31 Monocytes # (Manual) 0.1 K/mm3 (0.0-0.8) 04/21/18 04:31 Eosinophils # (Manual) 0.0 K/mm3 (0.0-0.4) 04/21/18 04:31 Basophils # (Manual) 0.0 K/mm3 (0.0-0.1) 04/21/18 04:31 Metamyelocytes # 0.0 K/mm3 04/21/18 04:31 Myelocytes # 0.0 K/mm3 04/21/18 04:31 Promyelocytes # 0.0 K/mm3 04/21/18 04:31 Blast Cells # 0.0 K/mm3 04/21/18 04:31 WBC Morphology Not Reportable 04/21/18 04:31 Hypersegmented Neuts Not Reportable 04/21/18 04:31 Hyposegmented Neuts Not Reportable 04/21/18 04:31 Hypogranular Neuts Not Reportable 04/21/18 04:31 Smudge Cells Not Reportable 04/21/18 04:31 Toxic Granulation Not Reportable 04/21/18 04:31 Toxic Vacuolation Not Reportable 04/21/18 04:31 Dohle Bodies Not Reportable 04/21/18 04:31 Pelger-Huet Anomaly Not Reportable 04/21/18 04:31 Juan Alberto Rods Not Reportable 04/21/18 04:31 Platelet Estimate Appears normal 04/21/18 04:31 Clumped Platelets Not Reportable 04/21/18 04:31 Plt Clumps, EDTA Not Reportable 04/21/18 04:31 Large Platelets Rare 04/21/18 04:31 Giant Platelets Not Reportable 04/21/18 04:31 Platelet Satelliting Not Reportable 04/21/18 04:31 Plt Morphology Comment Not Reportable 04/21/18 04:31 RBC Morphology Not Reportable 04/21/18 04:31 Dimorphic RBCs Not Reportable 04/21/18 04:31 Polychromasia Not Reportable 04/21/18 04:31 Hypochromasia 1+ 04/21/18 04:31 Poikilocytosis Not Reportable 04/21/18 04:31 Anisocytosis 1+ 04/21/18 04:31 Microcytosis Not Reportable 04/21/18 04:31 Macrocytosis Not Reportable 04/21/18 04:31 Spherocytes Not Reportable 04/21/18 04:31 Pappenheimer Bodies Not Reportable 04/21/18 04:31 Sickle Cells Not Reportable 04/21/18 04:31 Target Cells Not Reportable 04/21/18 04:31 Tear Drop Cells Not Reportable 04/21/18 04:31 Ovalocytes Not Reportable 04/21/18 04:31 Helmet Cells Not Reportable 04/21/18 04:31 [place] Bodies Not Reportable 04/21/18 04:31 [place] Rings Not Reportable 04/21/18 04:31 [place] Cells Not Reportable 04/21/18 04:31 Bite Cells Not Reportable 04/21/18 04:31 Crenated Cell Not Reportable 04/21/18 04:31 Elliptocytes Not Reportable 04/21/18 04:31 Acanthocytes (Spur) Not Reportable 04/21/18 04:31 Rouleaux Not Reportable 04/21/18 04:31 Hemoglobin C Crystals Not Reportable 04/21/18 04:31 Schistocytes Not Reportable 04/21/18 04:31 Malaria parasites Not Reportable 04/21/18 04:31 [place]ay Bodies Not Reportable 04/21/18 04:31 Hem Pathologist Commnt No 04/21/18 04:31 PT 14.0 Sec. (12.2-14.9) 04/19/18 04:38 INR 1.04 (0.87-1.13) 04/19/18 04:38 VBG pH 7.463 (7.320-7.420) H 04/19/18 04:38 Sodium 140 mmol/L (137-145) 04/21/18 04:31 Potassium 4.5 mmol/L (3.6-5.0) 04/21/18 04:31 Chloride 107.3 mmol/L (98-107) H 04/21/18 04:31 Carbon Dioxide 21 mmol/L (22-30) L 04/21/18 04:31 Anion Gap 16 mmol/L 04/21/18 04:31 BUN 8 mg/dL (7-17) 04/21/18 04:31 Creatinine 0.8 mg/dL (0.7-1.2) 04/21/18 04:31 Estimated GFR > 60 ml/min 04/21/18 04:31 BUN/Creatinine Ratio 10 % 04/21/18 04:31 Glucose 180 mg/dL (65-100) H 04/21/18 04:31 Lactic Acid 1.10 mmol/L (0.7-2.0) 04/20/18 13:03 Calcium 8.2 mg/dL (8.4-10.2) L 04/21/18 04:31 Total Bilirubin 0.20 mg/dL (0.1-1.2) 04/19/18 04:38 AST 37 units/L (5-40) 04/19/18 04:38 ALT 21 units/L (7-56) 04/19/18 04:38 Alkaline Phosphatase 76 units/L (35-129) 04/19/18 04:38 Total Creatine Kinase 66 units/L (30-135) 04/20/18 04:25 CK-MB (CK-2) 11.7 ng/mL (0.0-4.0) H 04/20/18 04:25 CK-MB (CK-2) Rel Index 17.7 (0-4) H 04/20/18 04:25 Troponin T 0.271 ng/mL (0.00-0.029) H* D 04/20/18 04:25 Total Protein 5.8 g/dL (6.3-8.2) L 04/19/18 04:38 Albumin 2.7 g/dL (3.9-5) L 04/19/18 04:38 Albumin/Globulin Ratio 0.9 % 04/19/18 04:38 Triglycerides 72 mg/dL (2-149) 04/19/18 04:38 Cholesterol 122 mg/dL (50-199) 04/19/18 04:38 LDL Cholesterol Direct 81 mg/dL (50-130) 04/19/18 04:38 HDL Cholesterol 38 mg/dL (40-59) L 04/19/18 04:38 Cholesterol/HDL Ratio 3.21 % 04/19/18 04:38 Urine Color Yellow (Yellow) 04/19/18 05:24 Urine Turbidity Clear (Clear) 04/19/18 05:24 Urine pH 5.0 (5.0-7.0) 04/19/18 05:24 Ur Specific [place] 1.014 (1.003-1.030) 04/19/18 05:24 Urine Protein <15 mg/dl mg/dL (Negative) 04/19/18 05:24 Urine Glucose (UA) Neg mg/dL (Negative) 04/19/18 05:24 Urine Ketones Neg mg/dL (Negative) 04/19/18 05:24 Urine Blood Neg (Negative) 04/19/18 05:24 Urine Nitrite Neg (Negative) 04/19/18 05:24 Urine Bilirubin Neg (Negative) 04/19/18 05:24 Urine Urobilinogen < 2.0 mg/dL (<2.0) 04/19/18 05:24 Ur Leukocyte Esterase Tr (Negative) 04/19/18 05:24 Urine WBC (Auto) 8.0 /HPF (0.0-6.0) H 04/19/18 05:24 Urine RBC (Auto) 3.0 /HPF (0.0-6.0) 04/19/18 05:24 U Epithel Cells (Auto) 1.0 /HPF (0-13.0) 04/19/18 05:24 Urine Bacteria (Auto) 2+ /HPF (Negative) 04/19/18 05:24 Hyaline Casts 13 /LPF 04/19/18 05:24 Urine Mucus Few /HPF 04/19/18 05:24
--- NOTE | 2018-04-21 13:00 | Progress Note ---
Assessment and Plan Echo reviewed - EF 40-45%, impaired relaxation, mild MR, mod pulm HTN, mild MS. Hypotension improved. Optimze HR and BPs - initiate lopressor in setting of mild CMP. Can consider stress test once medically stabilized as OP. Nothing further to add from cardiac perspective at this time. Will follow on as needed basis. The patient has been seen in conjunction with Dr. Tierra Gonzalez who agrees with the assessment and plan of care. - Patient Problems (1) Pneumonia Current Visit: Yes Status: Acute (2) Sepsis Current Visit: Yes Status: Suspected (3) Hypotension Current Visit: Yes Status: Acute (4) Altered mental status Current Visit: Yes Status: Acute (5) NSTEMI (non-ST elevated myocardial infarction) Current Visit: Yes Status: Acute (6) COPD (chronic obstructive pulmonary disease) Current Visit: Yes Status: Chronic (7) LV dysfunction Current Visit: Yes Status: Chronic Subjective Date of service: 04/21/18 Principal diagnosis: PNA Interval history: pt resting in bed, lethargic, no current cardiac complaints. Objective Last Vital Signs Temp 97.4 F L 04/20/18 12:26 Pulse 116 H 04/21/18 09:02 Resp 20 04/21/18 09:02 BP 142/83 04/21/18 09:00 Pulse Ox 99 04/21/18 09:00 - Physical Examination General: No Apparent Distress HEENT: Positive: PERRL Neck: Positive: neck supple, trachea midline Cardiac: Positive: Reg Rate and Rhythm, S1/S2 Lungs: Positive: clear to auscultation Neuro: Positive: Other (lethargic) Abdomen: Negative: Tender Skin: Negative: Rash, Wound Musculoskeletal: No Pain Extremities: Absent: edema - Labs and Meds CBC 04/21/18 Range/Units 04:31 WBC 2.1 L (4.5-11.0) K/mm3 RBC 3.34 L (3.65-5.03) M/mm3 Hgb 10.4 (10.1-14.3) gm/dl Hct 31.9 (30.3-42.9) % Plt Count 261 (140-440) K/mm3 Comprehensive Metabolic Panel 04/21/18 Range/Units 04:31 Sodium 140 (137-145) mmol/L Potassium 4.5 (3.6-5.0) mmol/L Chloride 107.3 H (98-107) mmol/L Carbon Dioxide 21 L (22-30) mmol/L BUN 8 (7-17) mg/dL Creatinine 0.8 (0.7-1.2) mg/dL Glucose 180 H (65-100) mg/dL Calcium 8.2 L (8.4-10.2) mg/dL - Imaging and Cardiology EKG: report reviewed, image reviewed Echo: pending - EKG Sinus rhythms and dysrhythmias: sinus rhythm
[2018-04-21] MEDS: LOPRESSOR PO SCH (22:10)
[2018-04-22] MEDS: PROVENTIL IH PRN ×2 (00:30→04:30)
[2018-04-22] MEDS: ZOSYN/NS 3.375GM/50ML 3.375 GM/50 ML BAG IV SCH ×3 (05:40→22:35)
[2018-04-22] MEDS: SYNTHROID PO SCH (05:40)
[2018-04-22] MEDS: SOLU-Medrol IV SCH ×3 (05:40→22:35)
[2018-04-22] MEDS: DUONEB *Not for PRN Use IH SCH ×4 (08:48→21:18)
[2018-04-22] MEDS: PULMICORT IH SCH ×2 (09:15→21:18)
[2018-04-22] MEDS: LOVENOX SUB-Q SCH (10:03)
[2018-04-22] MEDS: LOPRESSOR PO SCH ×2 (10:03→22:36)
--- NOTE | 2018-04-22 11:19 | Progress Note ---
Assessment and Plan Assessment and plan: Sepsis. Present on admission. Patient is criteria given the tachycardia, tachypnea and diagnosis of pneumonia. Continue sepsis pathway and follow-up blood cultures. Right lower lobe pneumonia with parapneumonic effusion. Continue IV antibiotics. Speech therapy evaluation. Follow up serial chest x-ray NSTEMI type II. Etiology secondary to above. Continue to follow repeat cardiac isoenzymes and EKG. Initial EKG shows no acute ischemic changes. Echocardiogram reveals EF 40-45%, impaired relaxation, mild MR, mod pulm HTN, mild MS. . Cardiology reports that we Can consider stress test once medically stabilized as OP. Acute hypoxemic respiratory failure. CTA of chest is negative for PE. Etiology secondary to pneumonia/pleural effusion. Continue O2 and supportive care. Acute COPD exacerbation. Continue systemic and inhaled steroids, bronchodilators and breathing treatments. Toxic metabolic encephalopathy. Continue to treat underlying causes. Disposition. Anticipate discharge in a.m. History Interval history: The pt is an 87-year-old female with a history of COPD. She is previously unknown to our practice. She is lethargic with no family at bedside on evaluation and thus most of HPI is obtained per the chart. She presented with complaints of SOB. presents with acute onset of shortness of breath. She was recently discharged from an outside hospital 15 days ago. Patient was then transitioned to [facility] and then was transitioning to [facility] assisted living when she became acutely short of breath and 2 AM was transitioned over to the emergency room for evaluation. Since admission, pt has been diagnosed with PNA, sepsis, hypotension. She was found to have elevated cardiac enzymes and thus cardiology has been consulted. Patient denies any complaints. No new issues overnight. Hospitalist Physical - Constitutional Vitals: Temp Pulse Resp BP Pulse Ox 97.9 F 100 H 18 129/80 93 04/22/18 08:02 04/22/18 10:00 04/22/18 10:00 04/22/18 08:02 04/22/18 10:00 General appearance: Present: other (lethargic) - EENT Eyes: Present: PERRL, EOM intact ENT: hearing intact, clear oral mucosa, dentition normal - Neck Neck: Present: supple, normal ROM - Respiratory Respiratory effort: normal Respiratory: bilateral: CTA - Cardiovascular Rhythm: regular Heart Sounds: Present: S1 & S2. Absent: gallop, rub - Extremities Extremities: no ischemia, No edema, Full ROM - Abdominal General gastrointestinal: soft, non-tender, non-distended, normal bowel sounds - Integumentary Integumentary: Present: clear, warm, dry - Neurologic Neurologic: CNII-XII intact, moves all extremities Results - Labs CBC & Chem 7: 04/21/18 04:31 04/21/18 04:31 Labs: Laboratory Last Values WBC 2.1 K/mm3 (4.5-11.0) L 04/21/18 04:31 RBC 3.34 M/mm3 (3.65-5.03) L 04/21/18 04:31 Hgb 10.4 gm/dl (10.1-14.3) 04/21/18 04:31 Hct 31.9 % (30.3-42.9) 04/21/18 04:31 MCV 96 fl (79-97) 04/21/18 04:31 MCH 31 pg (28-32) 04/21/18 04:31 MCHC 33 % (30-34) 04/21/18 04:31 RDW 15.0 % (13.2-15.2) 04/21/18 04:31 Plt Count 261 K/mm3 (140-440) 04/21/18 04:31 Lymph % (Auto) 7.7 % (13.4-35.0) L 04/19/18 04:38 [place] % (Auto) 6.8 % (0.0-7.3) 04/19/18 04:38 Eos % (Auto) 0.1 % (0.0-4.3) 04/19/18 04:38 Baso % (Auto) 0.3 % (0.0-1.8) 04/19/18 04:38 Lymph # 0.6 K/mm3 (1.2-5.4) L 04/19/18 04:38 [place] # 0.5 K/mm3 (0.0-0.8) 04/19/18 04:38 Eos # 0.0 K/mm3 (0.0-0.4) 04/19/18 04:38 Baso # 0.0 K/mm3 (0.0-0.1) 04/19/18 04:38 Add Manual Diff Complete 04/21/18 04:31 Total Counted 100 04/21/18 04:31 Seg Neutrophils % 85.1 % (40.0-70.0) H 04/19/18 04:38 Seg Neuts % (Manual) 61.0 % (40.0-70.0) 04/21/18 04:31 Band Neutrophils % 18.0 % 04/21/18 04:31 Lymphocytes % (Manual) 16.0 % (13.4-35.0) 04/21/18 04:31 Reactive Lymphs % (Man) 0 % 04/21/18 04:31 Monocytes % (Manual) 3.0 % (0.0-7.3) 04/21/18 04:31 Eosinophils % (Manual) 0 % (0.0-4.3) 04/21/18 04:31 Basophils % (Manual) 0 % (0.0-1.8) 04/21/18 04:31 Metamyelocytes % 0 % 04/21/18 04:31 Myelocytes % 2.0 % 04/21/18 04:31 Promyelocytes % 0 % 04/21/18 04:31 Blast Cells % 0 % 04/21/18 04:31 Nucleated RBC % Not Reportable 04/21/18 04:31 Seg Neutrophils # 6.6 K/mm3 (1.8-7.7) 04/19/18 04:38 Seg Neutrophils # Man 1.3 K/mm3 (1.8-7.7) L 04/21/18 04:31 Band Neutrophils # 0.4 K/mm3 04/21/18 04:31 Lymphocytes # (Manual) 0.3 K/mm3 (1.2-5.4) L 04/21/18 04:31 Abs React Lymphs (Man) 0.0 K/mm3 04/21/18 04:31 Monocytes # (Manual) 0.1 K/mm3 (0.0-0.8) 04/21/18 04:31 Eosinophils # (Manual) 0.0 K/mm3 (0.0-0.4) 04/21/18 04:31 Basophils # (Manual) 0.0 K/mm3 (0.0-0.1) 04/21/18 04:31 Metamyelocytes # 0.0 K/mm3 04/21/18 04:31 Myelocytes # 0.0 K/mm3 04/21/18 04:31 Promyelocytes # 0.0 K/mm3 04/21/18 04:31 Blast Cells # 0.0 K/mm3 04/21/18 04:31 WBC Morphology Not Reportable 04/21/18 04:31 Hypersegmented Neuts Not Reportable 04/21/18 04:31 Hyposegmented Neuts Not Reportable 04/21/18 04:31 Hypogranular Neuts Not Reportable 04/21/18 04:31 Smudge Cells Not Reportable 04/21/18 04:31 Toxic Granulation Not Reportable 04/21/18 04:31 Toxic Vacuolation Not Reportable 04/21/18 04:31 Dohle Bodies Not Reportable 04/21/18 04:31 Pelger-Huet Anomaly Not Reportable 04/21/18 04:31 Juan Alberto Rods Not Reportable 04/21/18 04:31 Platelet Estimate Appears normal 04/21/18 04:31 Clumped Platelets Not Reportable 04/21/18 04:31 Plt Clumps, EDTA Not Reportable 04/21/18 04:31 Large Platelets Rare 04/21/18 04:31 Giant Platelets Not Reportable 04/21/18 04:31 Platelet Satelliting Not Reportable 04/21/18 04:31 Plt Morphology Comment Not Reportable 04/21/18 04:31 RBC Morphology Not Reportable 04/21/18 04:31 Dimorphic RBCs Not Reportable 04/21/18 04:31 Polychromasia Not Reportable 04/21/18 04:31 Hypochromasia 1+ 04/21/18 04:31 Poikilocytosis Not Reportable 04/21/18 04:31 Anisocytosis 1+ 04/21/18 04:31 Microcytosis Not Reportable 04/21/18 04:31 Macrocytosis Not Reportable 04/21/18 04:31 Spherocytes Not Reportable 04/21/18 04:31 Pappenheimer Bodies Not Reportable 04/21/18 04:31 Sickle Cells Not Reportable 04/21/18 04:31 Target Cells Not Reportable 04/21/18 04:31 Tear Drop Cells Not Reportable 04/21/18 04:31 Ovalocytes Not Reportable 04/21/18 04:31 Helmet Cells Not Reportable 04/21/18 04:31 [place] Bodies Not Reportable 04/21/18 04:31 [place] Rings Not Reportable 04/21/18 04:31 [place] Cells Not Reportable 04/21/18 04:31 Bite Cells Not Reportable 04/21/18 04:31 Crenated Cell Not Reportable 04/21/18 04:31 Elliptocytes Not Reportable 04/21/18 04:31 Acanthocytes (Spur) Not Reportable 04/21/18 04:31 Rouleaux Not Reportable 04/21/18 04:31 Hemoglobin C Crystals Not Reportable 04/21/18 04:31 Schistocytes Not Reportable 04/21/18 04:31 Malaria parasites Not Reportable 04/21/18 04:31 Adonay Bodies Not Reportable 04/21/18 04:31 Hem Pathologist Commnt No 04/21/18 04:31 PT 14.0 Sec. (12.2-14.9) 04/19/18 04:38 INR 1.04 (0.87-1.13) 04/19/18 04:38 VBG pH 7.463 (7.320-7.420) H 04/19/18 04:38 Sodium 140 mmol/L (137-145) 04/21/18 04:31 Potassium 4.5 mmol/L (3.6-5.0) 04/21/18 04:31 Chloride 107.3 mmol/L (98-107) H 04/21/18 04:31 Carbon Dioxide 21 mmol/L (22-30) L 04/21/18 04:31 Anion Gap 16 mmol/L 04/21/18 04:31 BUN 8 mg/dL (7-17) 04/21/18 04:31 Creatinine 0.8 mg/dL (0.7-1.2) 04/21/18 04:31 Estimated GFR > 60 ml/min 04/21/18 04:31 BUN/Creatinine Ratio 10 % 04/21/18 04:31 Glucose 180 mg/dL (65-100) H 04/21/18 04:31 Lactic Acid 1.10 mmol/L (0.7-2.0) 04/20/18 13:03 Calcium 8.2 mg/dL (8.4-10.2) L 04/21/18 04:31 Total Bilirubin 0.20 mg/dL (0.1-1.2) 04/19/18 04:38 AST 37 units/L (5-40) 04/19/18 04:38 ALT 21 units/L (7-56) 04/19/18 04:38 Alkaline Phosphatase 76 units/L (35-129) 04/19/18 04:38 Total Creatine Kinase 66 units/L (30-135) 04/20/18 04:25 CK-MB (CK-2) 11.7 ng/mL (0.0-4.0) H 04/20/18 04:25 CK-MB (CK-2) Rel Index 17.7 (0-4) H 04/20/18 04:25 Troponin T 0.271 ng/mL (0.00-0.029) H* D 04/20/18 04:25 Total Protein 5.8 g/dL (6.3-8.2) L 04/19/18 04:38 Albumin 2.7 g/dL (3.9-5) L 04/19/18 04:38 Albumin/Globulin Ratio 0.9 % 04/19/18 04:38 Triglycerides 72 mg/dL (2-149) 04/19/18 04:38 Cholesterol 122 mg/dL (50-199) 04/19/18 04:38 LDL Cholesterol Direct 81 mg/dL (50-130) 04/19/18 04:38 HDL Cholesterol 38 mg/dL (40-59) L 04/19/18 04:38 Cholesterol/HDL Ratio 3.21 % 04/19/18 04:38 Urine Color Yellow (Yellow) 04/19/18 05:24 Urine Turbidity Clear (Clear) 04/19/18 05:24 Urine pH 5.0 (5.0-7.0) 04/19/18 05:24 Ur Specific [place] 1.014 (1.003-1.030) 04/19/18 05:24 Urine Protein <15 mg/dl mg/dL (Negative) 04/19/18 05:24 Urine Glucose (UA) Neg mg/dL (Negative) 04/19/18 05:24 Urine Ketones Neg mg/dL (Negative) 04/19/18 05:24 Urine Blood Neg (Negative) 04/19/18 05:24 Urine Nitrite Neg (Negative) 04/19/18 05:24 Urine Bilirubin Neg (Negative) 04/19/18 05:24 Urine Urobilinogen < 2.0 mg/dL (<2.0) 04/19/18 05:24 Ur Leukocyte Esterase Tr (Negative) 04/19/18 05:24 Urine WBC (Auto) 8.0 /HPF (0.0-6.0) H 04/19/18 05:24 Urine RBC (Auto) 3.0 /HPF (0.0-6.0) 04/19/18 05:24 U Epithel Cells (Auto) 1.0 /HPF (0-13.0) 04/19/18 05:24 Urine Bacteria (Auto) 2+ /HPF (Negative) 04/19/18 05:24 Hyaline Casts 13 /LPF 04/19/18 05:24 Urine Mucus Few /HPF 04/19/18 05:24
[2018-04-22] MEDS: SODIUM CHLORIDE FLUSH SYRINGE 10 ML IV SCH (15:41)
[2018-04-23] MEDS: SODIUM CHLORIDE FLUSH SYRINGE 10 ML IV SCH ×3 (01:27→21:56)
[2018-04-23] MEDS: ZOSYN/NS 3.375GM/50ML 3.375 GM/50 ML BAG IV SCH ×3 (06:01→21:56)
[2018-04-23] MEDS: SYNTHROID PO SCH (06:02)
[2018-04-23] MEDS: SOLU-Medrol IV SCH ×3 (06:02→21:56)
[2018-04-23] MEDS ORDERED: VISTARIL PO PRN (06:34)
[2018-04-23] MEDS: PULMICORT IH SCH ×2 (08:45→20:34)
[2018-04-23] MEDS: DUONEB *Not for PRN Use IH SCH ×4 (08:45→20:34)
[2018-04-23] MEDS: LOVENOX SUB-Q SCH (11:32)
[2018-04-23] MEDS: LOPRESSOR PO SCH ×2 (11:32→21:56)
--- NOTE | 2018-04-23 11:47 | Progress Note ---
Assessment and Plan Assessment and plan: Sepsis. Present on admission. Patient is criteria given the tachycardia, tachypnea and diagnosis of pneumonia. Continue sepsis pathway and follow-up blood cultures. Right lower lobe pneumonia with parapneumonic effusion. Continue IV antibiotics. Speech therapy evaluation. Follow up serial chest x-ray NSTEMI type II. Etiology secondary to above. Continue to follow repeat cardiac isoenzymes and EKG. Initial EKG shows no acute ischemic changes. Echocardiogram reveals EF 40-45%, impaired relaxation, mild MR, mod pulm HTN, mild MS. . Cardiology reports that we Can consider stress test once medically stabilized as OP. Acute hypoxemic respiratory failure. CTA of chest is negative for PE. Etiology secondary to pneumonia/pleural effusion. Continue O2 and supportive care. Acute COPD exacerbation. Continue systemic and inhaled steroids, bronchodilators and breathing treatments. Toxic metabolic encephalopathy. Continue to treat underlying causes. Disposition. Await PT evaluation. History Interval history: The pt is an 87-year-old female with a history of COPD. She is previously unknown to our practice. She is lethargic with no family at bedside on evaluation and thus most of HPI is obtained per the chart. She presented with complaints of SOB. presents with acute onset of shortness of breath. She was recently discharged from an outside hospital 15 days ago. Patient was then transitioned to [facility] and then was transitioning to [facility] assisted living when she became acutely short of breath and 2 AM was transitioned over to the emergency room for evaluation. Since admission, pt has been diagnosed with PNA, sepsis, hypotension. She was found to have elevated cardiac enzymes and thus cardiology has been consulted. Patient denies any complaints. No new issues overnight. Hospitalist Physical - Constitutional Vitals: Temp Pulse Resp BP Pulse Ox 97.9 F 106 H 19 133/75 97 04/23/18 07:47 04/23/18 08:46 04/23/18 08:46 04/23/18 07:47 04/23/18 07:47 General appearance: Present: other (lethargic) - EENT Eyes: Present: PERRL, EOM intact ENT: hearing intact, clear oral mucosa, dentition normal - Neck Neck: Present: supple, normal ROM - Respiratory Respiratory effort: normal Respiratory: bilateral: CTA - Cardiovascular Rhythm: regular Heart Sounds: Present: S1 & S2. Absent: gallop, rub - Extremities Extremities: no ischemia, No edema, Full ROM - Abdominal General gastrointestinal: soft, non-tender, non-distended, normal bowel sounds - Integumentary Integumentary: Present: clear, warm, dry - Neurologic Neurologic: CNII-XII intact, moves all extremities Results - Labs CBC & Chem 7: 04/21/18 04:31 04/21/18 04:31 Labs: Laboratory Last Values WBC 2.1 K/mm3 (4.5-11.0) L 04/21/18 04:31 RBC 3.34 M/mm3 (3.65-5.03) L 04/21/18 04:31 Hgb 10.4 gm/dl (10.1-14.3) 04/21/18 04:31 Hct 31.9 % (30.3-42.9) 04/21/18 04:31 MCV 96 fl (79-97) 04/21/18 04:31 MCH 31 pg (28-32) 04/21/18 04:31 MCHC 33 % (30-34) 04/21/18 04:31 RDW 15.0 % (13.2-15.2) 04/21/18 04:31 Plt Count 261 K/mm3 (140-440) 04/21/18 04:31 Lymph % (Auto) 7.7 % (13.4-35.0) L 04/19/18 04:38 [place] % (Auto) 6.8 % (0.0-7.3) 04/19/18 04:38 Eos % (Auto) 0.1 % (0.0-4.3) 04/19/18 04:38 Baso % (Auto) 0.3 % (0.0-1.8) 04/19/18 04:38 Lymph # 0.6 K/mm3 (1.2-5.4) L 04/19/18 04:38 [place] # 0.5 K/mm3 (0.0-0.8) 04/19/18 04:38 Eos # 0.0 K/mm3 (0.0-0.4) 04/19/18 04:38 Baso # 0.0 K/mm3 (0.0-0.1) 04/19/18 04:38 Add Manual Diff Complete 04/21/18 04:31 Total Counted 100 04/21/18 04:31 Seg Neutrophils % 85.1 % (40.0-70.0) H 04/19/18 04:38 Seg Neuts % (Manual) 61.0 % (40.0-70.0) 04/21/18 04:31 Band Neutrophils % 18.0 % 04/21/18 04:31 Lymphocytes % (Manual) 16.0 % (13.4-35.0) 04/21/18 04:31 Reactive Lymphs % (Man) 0 % 04/21/18 04:31 Monocytes % (Manual) 3.0 % (0.0-7.3) 04/21/18 04:31 Eosinophils % (Manual) 0 % (0.0-4.3) 04/21/18 04:31 Basophils % (Manual) 0 % (0.0-1.8) 04/21/18 04:31 Metamyelocytes % 0 % 04/21/18 04:31 Myelocytes % 2.0 % 04/21/18 04:31 Promyelocytes % 0 % 04/21/18 04:31 Blast Cells % 0 % 04/21/18 04:31 Nucleated RBC % Not Reportable 04/21/18 04:31 Seg Neutrophils # 6.6 K/mm3 (1.8-7.7) 04/19/18 04:38 Seg Neutrophils # Man 1.3 K/mm3 (1.8-7.7) L 04/21/18 04:31 Band Neutrophils # 0.4 K/mm3 04/21/18 04:31 Lymphocytes # (Manual) 0.3 K/mm3 (1.2-5.4) L 04/21/18 04:31 Abs React Lymphs (Man) 0.0 K/mm3 04/21/18 04:31 Monocytes # (Manual) 0.1 K/mm3 (0.0-0.8) 04/21/18 04:31 Eosinophils # (Manual) 0.0 K/mm3 (0.0-0.4) 04/21/18 04:31 Basophils # (Manual) 0.0 K/mm3 (0.0-0.1) 04/21/18 04:31 Metamyelocytes # 0.0 K/mm3 04/21/18 04:31 Myelocytes # 0.0 K/mm3 04/21/18 04:31 Promyelocytes # 0.0 K/mm3 04/21/18 04:31 Blast Cells # 0.0 K/mm3 04/21/18 04:31 WBC Morphology Not Reportable 04/21/18 04:31 Hypersegmented Neuts Not Reportable 04/21/18 04:31 Hyposegmented Neuts Not Reportable 04/21/18 04:31 Hypogranular Neuts Not Reportable 04/21/18 04:31 Smudge Cells Not Reportable 04/21/18 04:31 Toxic Granulation Not Reportable 04/21/18 04:31 Toxic Vacuolation Not Reportable 04/21/18 04:31 Dohle Bodies Not Reportable 04/21/18 04:31 Pelger-[place]uet Anomaly Not Reportable 04/21/18 04:31 Juan Alberto Rods Not Reportable 04/21/18 04:31 Platelet Estimate Appears normal 04/21/18 04:31 Clumped Platelets Not Reportable 04/21/18 04:31 Plt Clumps, EDTA Not Reportable 04/21/18 04:31 Large Platelets Rare 04/21/18 04:31 Giant Platelets Not Reportable 04/21/18 04:31 Platelet Satelliting Not Reportable 04/21/18 04:31 Plt Morphology Comment Not Reportable 04/21/18 04:31 RBC Morphology Not Reportable 04/21/18 04:31 Dimorphic RBCs Not Reportable 04/21/18 04:31 Polychromasia Not Reportable 04/21/18 04:31 Hypochromasia 1+ 04/21/18 04:31 Poikilocytosis Not Reportable 04/21/18 04:31 Anisocytosis 1+ 04/21/18 04:31 Microcytosis Not Reportable 04/21/18 04:31 Macrocytosis Not Reportable 04/21/18 04:31 Spherocytes Not Reportable 04/21/18 04:31 Pappenheimer Bodies Not Reportable 04/21/18 04:31 Sickle Cells Not Reportable 04/21/18 04:31 Target Cells Not Reportable 04/21/18 04:31 Tear Drop Cells Not Reportable 04/21/18 04:31 Ovalocytes Not Reportable 04/21/18 04:31 Helmet Cells Not Reportable 04/21/18 04:31 [place] Bodies Not Reportable 04/21/18 04:31 [place] Rings Not Reportable 04/21/18 04:31 [place] Cells Not Reportable 04/21/18 04:31 Bite Cells Not Reportable 04/21/18 04:31 Crenated Cell Not Reportable 04/21/18 04:31 Elliptocytes Not Reportable 04/21/18 04:31 Acanthocytes (Spur) Not Reportable 04/21/18 04:31 Rouleaux Not Reportable 04/21/18 04:31 Hemoglobin C Crystals Not Reportable 04/21/18 04:31 Schistocytes Not Reportable 04/21/18 04:31 Malaria parasites Not Reportable 04/21/18 04:31 [place] Bodies Not Reportable 04/21/18 04:31 Hem Pathologist Commnt No 04/21/18 04:31 PT 14.0 Sec. (12.2-14.9) 04/19/18 04:38 INR 1.04 (0.87-1.13) 04/19/18 04:38 VBG pH 7.463 (7.320-7.420) H 04/19/18 04:38 Sodium 140 mmol/L (137-145) 04/21/18 04:31 Potassium 4.5 mmol/L (3.6-5.0) 04/21/18 04:31 Chloride 107.3 mmol/L (98-107) H 04/21/18 04:31 Carbon Dioxide 21 mmol/L (22-30) L 04/21/18 04:31 Anion Gap 16 mmol/L 04/21/18 04:31 BUN 8 mg/dL (7-17) 04/21/18 04:31 Creatinine 0.8 mg/dL (0.7-1.2) 04/21/18 04:31 Estimated GFR > 60 ml/min 04/21/18 04:31 BUN/Creatinine Ratio 10 % 04/21/18 04:31 Glucose 180 mg/dL (65-100) H 04/21/18 04:31 Lactic Acid 1.10 mmol/L (0.7-2.0) 04/20/18 13:03 Calcium 8.2 mg/dL (8.4-10.2) L 04/21/18 04:31 Total Bilirubin 0.20 mg/dL (0.1-1.2) 04/19/18 04:38 AST 37 units/L (5-40) 04/19/18 04:38 ALT 21 units/L (7-56) 04/19/18 04:38 Alkaline Phosphatase 76 units/L (35-129) 04/19/18 04:38 Total Creatine Kinase 66 units/L (30-135) 04/20/18 04:25 CK-MB (CK-2) 11.7 ng/mL (0.0-4.0) H 04/20/18 04:25 CK-MB (CK-2) Rel Index 17.7 (0-4) H 04/20/18 04:25 Troponin T 0.271 ng/mL (0.00-0.029) H* D 04/20/18 04:25 Total Protein 5.8 g/dL (6.3-8.2) L 04/19/18 04:38 Albumin 2.7 g/dL (3.9-5) L 04/19/18 04:38 Albumin/Globulin Ratio 0.9 % 04/19/18 04:38 Triglycerides 72 mg/dL (2-149) 04/19/18 04:38 Cholesterol 122 mg/dL (50-199) 04/19/18 04:38 LDL Cholesterol Direct 81 mg/dL (50-130) 04/19/18 04:38 HDL Cholesterol 38 mg/dL (40-59) L 04/19/18 04:38 Cholesterol/HDL Ratio 3.21 % 04/19/18 04:38 Urine Color Yellow (Yellow) 04/19/18 05:24 Urine Turbidity Clear (Clear) 04/19/18 05:24 Urine pH 5.0 (5.0-7.0) 04/19/18 05:24 Ur Specific [place] 1.014 (1.003-1.030) 04/19/18 05:24 Urine Protein <15 mg/dl mg/dL (Negative) 04/19/18 05:24 Urine Glucose (UA) Neg mg/dL (Negative) 04/19/18 05:24 Urine Ketones Neg mg/dL (Negative) 04/19/18 05:24 Urine Blood Neg (Negative) 04/19/18 05:24 Urine Nitrite Neg (Negative) 04/19/18 05:24 Urine Bilirubin Neg (Negative) 04/19/18 05:24 Urine Urobilinogen < 2.0 mg/dL (<2.0) 04/19/18 05:24 Ur Leukocyte Esterase Tr (Negative) 04/19/18 05:24 Urine WBC (Auto) 8.0 /HPF (0.0-6.0) H 04/19/18 05:24 Urine RBC (Auto) 3.0 /HPF (0.0-6.0) 04/19/18 05:24 U Epithel Cells (Auto) 1.0 /HPF (0-13.0) 04/19/18 05:24 Urine Bacteria (Auto) 2+ /HPF (Negative) 04/19/18 05:24 Hyaline Casts 13 /LPF 04/19/18 05:24 Urine Mucus Few /HPF 04/19/18 05:24
[2018-04-23] MEDS: TYLENOL PO PRN (22:15)
[2018-04-24] MEDS: PROVENTIL IH PRN ×2 (02:43→20:28)
[2018-04-24] MEDS: SOLU-Medrol IV SCH ×3 (05:44→21:40)
[2018-04-24] MEDS: ZOSYN/NS 3.375GM/50ML 3.375 GM/50 ML BAG IV SCH ×3 (05:44→21:40)
[2018-04-24] MEDS: SYNTHROID PO SCH (05:44)
[2018-04-24] MEDS: PULMICORT IH SCH (08:11)
[2018-04-24] MEDS: DUONEB *Not for PRN Use IH SCH ×5 (08:11→20:40)
--- NOTE | 2018-04-24 09:49 | Progress Note ---
Assessment and Plan Assessment and plan: Sepsis. Present on admission. Patient is criteria given the tachycardia, tachypnea and diagnosis of pneumonia. Continue sepsis pathway and follow-up blood cultures. Right lower lobe pneumonia with parapneumonic effusion. Continue IV antibiotics. Speech therapy evaluation. Follow up serial chest x-ray NSTEMI type II. Etiology secondary to above. Continue to follow repeat cardiac isoenzymes and EKG. Initial EKG shows no acute ischemic changes. Echocardiogram reveals EF 40-45%, impaired relaxation, mild MR, mod pulm HTN, mild MS. . Cardiology reports that we Can consider stress test once medically stabilized as OP. Acute hypoxemic respiratory failure. CTA of chest is negative for PE. Etiology secondary to pneumonia/pleural effusion. Continue O2 and supportive care. Wean O2 as tolerated. Repeat chest x-ray. Acute COPD exacerbation. Continue systemic and inhaled steroids, bro nchodilators and breathing treatments. Toxic metabolic encephalopathy. Continue to treat underlying causes. Disposition. Await PT evaluation. History Interval history: The pt is an 87-year-old female with a history of COPD. She is previously unknown to our practice. She is lethargic with no family at bedside on evaluation and thus most of HPI is obtained per the chart. She presented with complaints of SOB. presents with acute onset of shortness of breath. She was recently discharged from an outside hospital 15 days ago. Patient was then transitioned to [facility] and then was transitioning to [facility] assisted living when she became acutely short of breath and 2 AM was transitioned over to the emergency room for evaluation. Since admission, pt has been diagnosed with PNA, sepsis, hypotension. She was found to have elevated cardiac enzymes and thus cardiology was consulted. Patient denies any complaints. No new issues overnight. However, patient with increased amounts of oxygen 15 L. Hospitalist Physical - Constitutional Vitals: Temp Pulse Resp BP Pulse Ox 97.9 F 108 H 20 164/100 97 04/24/18 07:59 04/24/18 08:28 04/24/18 08:28 04/24/18 07:59 04/24/18 08:14 General appearance: Present: other (lethargic) - EENT Eyes: Present: PERRL, EOM intact ENT: hearing intact, clear oral mucosa, dentition normal - Neck Neck: Present: supple, normal ROM - Respiratory Respiratory effort: normal Respiratory: bilateral: CTA - Cardiovascular Rhythm: regular Heart Sounds: Present: S1 & S2. Absent: gallop, rub - Extremities Extremities: no ischemia, No edema, Full ROM - Abdominal General gastrointestinal: soft, non-tender, non-distended, normal bowel sounds - Integumentary Integumentary: Present: clear, warm, dry - Neurologic Neurologic: CNII-XII intact, moves all extremities Results - Labs CBC & Chem 7: 04/21/18 04:31 04/21/18 04:31 Labs: Laboratory Last Values WBC 2.1 K/mm3 (4.5-11.0) L 04/21/18 04:31 RBC 3.34 M/mm3 (3.65-5.03) L 04/21/18 04:31 Hgb 10.4 gm/dl (10.1-14.3) 04/21/18 04:31 Hct 31.9 % (30.3-42.9) 04/21/18 04:31 MCV 96 fl (79-97) 04/21/18 04:31 MCH 31 pg (28-32) 04/21/18 04:31 MCHC 33 % (30-34) 04/21/18 04:31 RDW 15.0 % (13.2-15.2) 04/21/18 04:31 Plt Count 261 K/mm3 (140-440) 04/21/18 04:31 Lymph % (Auto) 7.7 % (13.4-35.0) L 04/19/18 04:38 [place] % (Auto) 6.8 % (0.0-7.3) 04/19/18 04:38 Eos % (Auto) 0.1 % (0.0-4.3) 04/19/18 04:38 Baso % (Auto) 0.3 % (0.0-1.8) 04/19/18 04:38 Lymph # 0.6 K/mm3 (1.2-5.4) L 04/19/18 04:38 [place] # 0.5 K/mm3 (0.0-0.8) 04/19/18 04:38 Eos # 0.0 K/mm3 (0.0-0.4) 04/19/18 04:38 Baso # 0.0 K/mm3 (0.0-0.1) 04/19/18 04:38 Add Manual Diff Complete 04/21/18 04:31 Total Counted 100 04/21/18 04:31 Seg Neutrophils % 85.1 % (40.0-70.0) H 04/19/18 04:38 Seg Neuts % (Manual) 61.0 % (40.0-70.0) 04/21/18 04:31 Band Neutrophils % 18.0 % 04/21/18 04:31 Lymphocytes % (Manual) 16.0 % (13.4-35.0) 04/21/18 04:31 Reactive Lymphs % (Man) 0 % 04/21/18 04:31 Monocytes % (Manual) 3.0 % (0.0-7.3) 04/21/18 04:31 Eosinophils % (Manual) 0 % (0.0-4.3) 04/21/18 04:31 Basophils % (Manual) 0 % (0.0-1.8) 04/21/18 04:31 Metamyelocytes % 0 % 04/21/18 04:31 Myelocytes % 2.0 % 04/21/18 04:31 Promyelocytes % 0 % 04/21/18 04:31 Blast Cells % 0 % 04/21/18 04:31 Nucleated RBC % Not Reportable 04/21/18 04:31 Seg Neutrophils # 6.6 K/mm3 (1.8-7.7) 04/19/18 04:38 Seg Neutrophils # Man 1.3 K/mm3 (1.8-7.7) L 04/21/18 04:31 Band Neutrophils # 0.4 K/mm3 04/21/18 04:31 Lymphocytes # (Manual) 0.3 K/mm3 (1.2-5.4) L 04/21/18 04:31 Abs React Lymphs (Man) 0.0 K/mm3 04/21/18 04:31 Monocytes # (Manual) 0.1 K/mm3 (0.0-0.8) 04/21/18 04:31 Eosinophils # (Manual) 0.0 K/mm3 (0.0-0.4) 04/21/18 04:31 Basophils # (Manual) 0.0 K/mm3 (0.0-0.1) 04/21/18 04:31 Metamyelocytes # 0.0 K/mm3 04/21/18 04:31 Myelocytes # 0.0 K/mm3 04/21/18 04:31 Promyelocytes # 0.0 K/mm3 04/21/18 04:31 Blast Cells # 0.0 K/mm3 04/21/18 04:31 WBC Morphology Not Reportable 04/21/18 04:31 Hypersegmented Neuts Not Reportable 04/21/18 04:31 Hyposegmented Neuts Not Reportable 04/21/18 04:31 Hypogranular Neuts Not Reportable 04/21/18 04:31 Smudge Cells Not Reportable 04/21/18 04:31 Toxic Granulation Not Reportable 04/21/18 04:31 Toxic Vacuolation Not Reportable 04/21/18 04:31 Dohle Bodies Not Reportable 04/21/18 04:31 Pelger-Huet Anomaly Not Reportable 04/21/18 04:31 Juan Alberto Rods Not Reportable 04/21/18 04:31 Platelet Estimate Appears normal 04/21/18 04:31 Clumped Platelets Not Reportable 04/21/18 04:31 Plt Clumps, EDTA Not Reportable 04/21/18 04:31 Large Platelets Rare 04/21/18 04:31 Giant Platelets Not Reportable 04/21/18 04:31 Platelet Satelliting Not Reportable 04/21/18 04:31 Plt Morphology Comment Not Reportable 04/21/18 04:31 RBC Morphology Not Reportable 04/21/18 04:31 Dimorphic RBCs Not Reportable 04/21/18 04:31 Polychromasia Not Reportable 04/21/18 04:31 Hypochromasia 1+ 04/21/18 04:31 Poikilocytosis Not Reportable 04/21/18 04:31 Anisocytosis 1+ 04/21/18 04:31 Microcytosis Not Reportable 04/21/18 04:31 Macrocytosis Not Reportable 04/21/18 04:31 Spherocytes Not Reportable 04/21/18 04:31 Pappenheimer Bodies Not Reportable 04/21/18 04:31 Sickle Cells Not Reportable 04/21/18 04:31 Target Cells Not Reportable 04/21/18 04:31 Tear Drop Cells Not Reportable 04/21/18 04:31 Ovalocytes Not Reportable 04/21/18 04:31 Helmet Cells Not Reportable 04/21/18 04:31 [place] Bodies Not Reportable 04/21/18 04:31 [place] Rings Not Reportable 04/21/18 04:31 Nury Cells Not Reportable 04/21/18 04:31 Bite Cells Not Reportable 04/21/18 04:31 Crenated Cell Not Reportable 04/21/18 04:31 Elliptocytes Not Reportable 04/21/18 04:31 Acanthocytes (Spur) Not Reportable 04/21/18 04:31 Rouleaux Not Reportable 04/21/18 04:31 Hemoglobin C Crystals Not Reportable 04/21/18 04:31 Schistocytes Not Reportable 04/21/18 04:31 Malaria parasites Not Reportable 04/21/18 04:31 Adonay Bodies Not Reportable 04/21/18 04:31 Hem Pathologist Commnt No 04/21/18 04:31 PT 14.0 Sec. (12.2-14.9) 04/19/18 04:38 INR 1.04 (0.87-1.13) 04/19/18 04:38 VBG pH 7.463 (7.320-7.420) H 04/19/18 04:38 Sodium 140 mmol/L (137-145) 04/21/18 04:31 Potassium 4.5 mmol/L (3.6-5.0) 04/21/18 04:31 Chloride 107.3 mmol/L (98-107) H 04/21/18 04:31 Carbon Dioxide 21 mmol/L (22-30) L 04/21/18 04:31 Anion Gap 16 mmol/L 04/21/18 04:31 BUN 8 mg/dL (7-17) 04/21/18 04:31 Creatinine 0.8 mg/dL (0.7-1.2) 04/21/18 04:31 Estimated GFR > 60 ml/min 04/21/18 04:31 BUN/Creatinine Ratio 10 % 04/21/18 04:31 Glucose 180 mg/dL (65-100) H 04/21/18 04:31 Lactic Acid 1.10 mmol/L (0.7-2.0) 04/20/18 13:03 Calcium 8.2 mg/dL (8.4-10.2) L 04/21/18 04:31 Total Bilirubin 0.20 mg/dL (0.1-1.2) 04/19/18 04:38 AST 37 units/L (5-40) 04/19/18 04:38 ALT 21 units/L (7-56) 04/19/18 04:38 Alkaline Phosphatase 76 units/L (35-129) 04/19/18 04:38 Total Creatine Kinase 66 units/L (30-135) 04/20/18 04:25 CK-MB (CK-2) 11.7 ng/mL (0.0-4.0) H 04/20/18 04:25 CK-MB (CK-2) Rel Index 17.7 (0-4) H 04/20/18 04:25 Troponin T 0.271 ng/mL (0.00-0.029) H* D 04/20/18 04:25 Total Protein 5.8 g/dL (6.3-8.2) L 04/19/18 04:38 Albumin 2.7 g/dL (3.9-5) L 04/19/18 04:38 Albumin/Globulin Ratio 0.9 % 04/19/18 04:38 Triglycerides 72 mg/dL (2-149) 04/19/18 04:38 Cholesterol 122 mg/dL (50-199) 04/19/18 04:38 LDL Cholesterol Direct 81 mg/dL (50-130) 04/19/18 04:38 HDL Cholesterol 38 mg/dL (40-59) L 04/19/18 04:38 Cholesterol/HDL Ratio 3.21 % 04/19/18 04:38 Urine Color Yellow (Yellow) 04/19/18 05:24 Urine Turbidity Clear (Clear) 04/19/18 05:24 Urine pH 5.0 (5.0-7.0) 04/19/18 05:24 Ur Specific [place] 1.014 (1.003-1.030) 04/19/18 05:24 Urine Protein <15 mg/dl mg/dL (Negative) 04/19/18 05:24 Urine Glucose (UA) Neg mg/dL (Negative) 04/19/18 05:24 Urine Ketones Neg mg/dL (Negative) 04/19/18 05:24 Urine Blood Neg (Negative) 04/19/18 05:24 Urine Nitrite Neg (Negative) 04/19/18 05:24 Urine Bilirubin Neg (Negative) 04/19/18 05:24 Urine Urobilinogen < 2.0 mg/dL (<2.0) 04/19/18 05:24 Ur Leukocyte Esterase Tr (Negative) 04/19/18 05:24 Urine WBC (Auto) 8.0 /HPF (0.0-6.0) H 04/19/18 05:24 Urine RBC (Auto) 3.0 /HPF (0.0-6.0) 04/19/18 05:24 U Epithel Cells (Auto) 1.0 /HPF (0-13.0) 04/19/18 05:24 Urine Bacteria (Auto) 2+ /HPF (Negative) 04/19/18 05:24 Hyaline Casts 13 /LPF 04/19/18 05:24 Urine Mucus Few /HPF 04/19/18 05:24 Nutrition/Malnutrition Assess - Dietary Evaluation Nutrition/Malnutrition Findings: Nutrition Notes Start: 04/23/18 15:24 Freq: Status: Active Protocol: Document 04/23/18 15:25 RM (Rec: 04/23/18 15:32 RM [id number]) Nutrition Notes Need for Assessment generated from: MD Order Initial or Follow up Assessment Current Diagnosis COPD Other Pertinent Diagnosis Septic shock, UTI, SOB, R lower lobe pneu, toxic metabolic encephalopathy Current Diet Regular Labs/Tests Reviewed Pertinent Medications Solu-Medrol Height 5 ft 4 in Weight 58.967 kg Usual Body Weight 56.36 kg [place] Body Weight (kg) 54.54 BMI 22.3 Subjective/Other Information Consulted for poor oral intake . Pt stated that her appetite is poor. Stated that she normally eats 1-2 meals daily at home. Noted lunch with none eaten and partially drunk Ensure Original at bedside. Stataed UBW was 123-125 lbs a couple of weeks ago. Noted temporal wasting. Burn Absent Trauma Absent #1 Nutrition Diagnosis Malnutrition Etiology decreased appetite, encephalopathy As Evidenced by Signs and Symptoms temporal wasting, pt statement that she normally eats 1-2 meals daily at home Is patient on ventilator? No Is Patient Ambulatory and/or Out of Bed No REE-([facility]-confined to bed) 1231.056 Kcal/Kg value to use for calculation 25 Approximate Energy Requirements Using 1474 kcal/Kg Calculation Used for Recommendations Kcal/kg Additional Notes Protein Needs: 71-89g (1.2-1. 5g/kg) Fluid Needs: 1 ml/kcal Nutrition Intervention Change Diet Order: Continue current Add Supplement/Snack (indicate name/kcal Ensure Enlive [place] 1 /protein ) daily Provides kCal: 350 Provides Protein (gm) 20 Goal #1 Meet at least 75% of calorie and protein needs via PO and ONS intakes Anticipated Discharge Needs: Regular diet Follow-Up By: 04/25/18 Additional Comments Follow for PO intakes, ONS intakes
[2018-04-24] MEDS: LOVENOX SUB-Q SCH (10:03)
[2018-04-24] MEDS: LOPRESSOR PO SCH ×2 (10:04→21:39)
[2018-04-24] MEDS: SODIUM CHLORIDE FLUSH SYRINGE 10 ML IV SCH ×2 (10:06→21:41)
[2018-04-24] MEDS: TYLENOL PO PRN (18:25)
[2018-04-25] MEDS: PULMICORT IH SCH ×3 (03:19→21:33)
[2018-04-25] MEDS: SYNTHROID PO SCH (05:34)
[2018-04-25] MEDS: SOLU-Medrol IV SCH ×3 (05:34→23:50)
[2018-04-25] MEDS: ZOSYN/NS 3.375GM/50ML 3.375 GM/50 ML BAG IV SCH ×3 (05:34→23:50)
[2018-04-25] MEDS: DUONEB *Not for PRN Use IH SCH ×3 (08:43→21:33)
[2018-04-25] MEDS: LOPRESSOR PO SCH ×2 (10:40→23:51)
[2018-04-25] MEDS: LOVENOX SUB-Q SCH (10:40)
[2018-04-25] MEDS: SODIUM CHLORIDE FLUSH SYRINGE 10 ML IV SCH ×2 (10:40→23:53)
--- NOTE | 2018-04-25 10:53 | XRay Report ---
ROUTINE CHEST, TWO VIEWS: HISTORY: Pneumonia. Compared to 04/21/18. The right hemidiaphragm appears elevated. Trace right pleural effusion and mild right basilar atelectasis is suspected. The remainder of the lungs are clear. Normal heart size and pulmonary vascularity. IMPRESSION: Elevated right hemidiaphragm. Right basilar opacity and small right pleural effusion.
--- NOTE | 2018-04-25 13:02 | Progress Note ---
Assessment and Plan Assessment and plan: Sepsis. Present on admission. Patient is criteria given the tachycardia, tachypnea and diagnosis of pneumonia. Continue sepsis pathway and follow-up blood cultures. Right lower lobe pneumonia with parapneumonic effusion. Continue IV antibiotics. Speech therapy evaluation. Follow up serial chest x-ray NSTEMI type II. Etiology secondary to above. Continue to follow repeat cardiac isoenzymes and EKG. Initial EKG shows no acute ischemic changes. Echocardiogram reveals EF 40-45%, impaired relaxation, mild MR, mod pulm HTN, mild MS. . Cardiology reports that we Can consider stress test once medically stabilized as OP. Acute hypoxemic respiratory failure. CTA of chest is negative for PE. Etiology secondary to pneumonia/pleural effusion. Continue O2 and supportive care. Wean O2 as tolerated. Repeat chest x-ray. Acute COPD exacerbation. Continue systemic and inhaled steroids, bro nchodilators and breathing treatments. Toxic metabolic encephalopathy. Continue to treat underlying causes. Disposition. Discussed with Case management. Patient and family interested in Home hospice. Arrangements ongoing. History Interval history: Less shortness of breath No chest pain Patient and family interested in home hospice Hospitalist Physical - Physical exam Narrative exam: GEN: Not in acute distress, lying in bed,ill looking HEENT: Normocephalic, atraumatic, Neck: supple, No JVD Lungs: Clear to auscultation bilaterally, no wheeze Heart:S1 and S2 regular, no murmurs, rubs or gallop, Abd:soft, non tender, non distended, normal bowel sounds Ext: No edema, no clubbing or cyanosis Neuro: Awake,alert, No focal signs Psych:Normal mood - Constitutional Vitals: Temp Pulse Resp BP Pulse Ox 97.5 F L 81 18 132/74 94 04/25/18 12:13 04/25/18 11:53 04/25/18 11:53 04/25/18 11:53 04/25/18 11:53 General appearance: Present: other (lethargic) Results - Labs CBC & Chem 7: 04/21/18 04:31 04/21/18 04:31 Labs: Laboratory Last Values WBC 2.1 K/mm3 (4.5-11.0) L 04/21/18 04:31 RBC 3.34 M/mm3 (3.65-5.03) L 04/21/18 04:31 Hgb 10.4 gm/dl (10.1-14.3) 04/21/18 04:31 Hct 31.9 % (30.3-42.9) 04/21/18 04:31 MCV 96 fl (79-97) 04/21/18 04:31 MCH 31 pg (28-32) 04/21/18 04:31 MCHC 33 % (30-34) 04/21/18 04:31 RDW 15.0 % (13.2-15.2) 04/21/18 04:31 Plt Count 261 K/mm3 (140-440) 04/21/18 04:31 Lymph % (Auto) 7.7 % (13.4-35.0) L 04/19/18 04:38 [place] % (Auto) 6.8 % (0.0-7.3) 04/19/18 04:38 Eos % (Auto) 0.1 % (0.0-4.3) 04/19/18 04:38 Baso % (Auto) 0.3 % (0.0-1.8) 04/19/18 04:38 Lymph # 0.6 K/mm3 (1.2-5.4) L 04/19/18 04:38 [place] # 0.5 K/mm3 (0.0-0.8) 04/19/18 04:38 Eos # 0.0 K/mm3 (0.0-0.4) 04/19/18 04:38 Baso # 0.0 K/mm3 (0.0-0.1) 04/19/18 04:38 Add Manual Diff Complete 04/21/18 04:31 Total Counted 100 04/21/18 04:31 Seg Neutrophils % 85.1 % (40.0-70.0) H 04/19/18 04:38 Seg Neuts % (Manual) 61.0 % (40.0-70.0) 04/21/18 04:31 Band Neutrophils % 18.0 % 04/21/18 04:31 Lymphocytes % (Manual) 16.0 % (13.4-35.0) 04/21/18 04:31 Reactive Lymphs % (Man) 0 % 04/21/18 04:31 Monocytes % (Manual) 3.0 % (0.0-7.3) 04/21/18 04:31 Eosinophils % (Manual) 0 % (0.0-4.3) 04/21/18 04:31 Basophils % (Manual) 0 % (0.0-1.8) 04/21/18 04:31 Metamyelocytes % 0 % 04/21/18 04:31 Myelocytes % 2.0 % 04/21/18 04:31 Promyelocytes % 0 % 04/21/18 04:31 Blast Cells % 0 % 04/21/18 04:31 Nucleated RBC % Not Reportable 04/21/18 04:31 Seg Neutrophils # 6.6 K/mm3 (1.8-7.7) 04/19/18 04:38 Seg Neutrophils # Man 1.3 K/mm3 (1.8-7.7) L 04/21/18 04:31 Band Neutrophils # 0.4 K/mm3 04/21/18 04:31 Lymphocytes # (Manual) 0.3 K/mm3 (1.2-5.4) L 04/21/18 04:31 Abs React Lymphs (Man) 0.0 K/mm3 04/21/18 04:31 Monocytes # (Manual) 0.1 K/mm3 (0.0-0.8) 04/21/18 04:31 Eosinophils # (Manual) 0.0 K/mm3 (0.0-0.4) 04/21/18 04:31 Basophils # (Manual) 0.0 K/mm3 (0.0-0.1) 04/21/18 04:31 Metamyelocytes # 0.0 K/mm3 04/21/18 04:31 Myelocytes # 0.0 K/mm3 04/21/18 04:31 Promyelocytes # 0.0 K/mm3 04/21/18 04:31 Blast Cells # 0.0 K/mm3 04/21/18 04:31 WBC Morphology Not Reportable 04/21/18 04:31 Hypersegmented Neuts Not Reportable 04/21/18 04:31 Hyposegmented Neuts Not Reportable 04/21/18 04:31 Hypogranular Neuts Not Reportable 04/21/18 04:31 Smudge Cells Not Reportable 04/21/18 04:31 Toxic Granulation Not Reportable 04/21/18 04:31 Toxic Vacuolation Not Reportable 04/21/18 04:31 Dohle Bodies Not Reportable 04/21/18 04:31 Pelger-Huet Anomaly Not Reportable 04/21/18 04:31 Juan Alberto Rods Not Reportable 04/21/18 04:31 Platelet Estimate Appears normal 04/21/18 04:31 Clumped Platelets Not Reportable 04/21/18 04:31 Plt Clumps, EDTA Not Reportable 04/21/18 04:31 Large Platelets Rare 04/21/18 04:31 Giant Platelets Not Reportable 04/21/18 04:31 Platelet Satelliting Not Reportable 04/21/18 04:31 Plt Morphology Comment Not Reportable 04/21/18 04:31 RBC Morphology Not Reportable 04/21/18 04:31 Dimorphic RBCs Not Reportable 04/21/18 04:31 Polychromasia Not Reportable 04/21/18 04:31 Hypochromasia 1+ 04/21/18 04:31 Poikilocytosis Not Reportable 04/21/18 04:31 Anisocytosis 1+ 04/21/18 04:31 Microcytosis Not Reportable 04/21/18 04:31 Macrocytosis Not Reportable 04/21/18 04:31 Spherocytes Not Reportable 04/21/18 04:31 Pappenheimer Bodies Not Reportable 04/21/18 04:31 Sickle Cells Not Reportable 04/21/18 04:31 Target Cells Not Reportable 04/21/18 04:31 Tear Drop Cells Not Reportable 04/21/18 04:31 Ovalocytes Not Reportable 04/21/18 04:31 Helmet Cells Not Reportable 04/21/18 04:31 Dud[place]uel [place] Bodies Not Reportable 04/21/18 04:31 [place] Rings Not Reportable 04/21/18 04:31 Nury Cells Not Reportable 04/21/18 04:31 Bite Cells Not Reportable 04/21/18 04:31 Crenated Cell Not Reportable 04/21/18 04:31 Elliptocytes Not Reportable 04/21/18 04:31 Acanthocytes (Spur) Not Reportable 04/21/18 04:31 Rouleaux Not Reportable 04/21/18 04:31 Hemoglobin C Crystals Not Reportable 04/21/18 04:31 Schistocytes Not Reportable 04/21/18 04:31 Malaria parasites Not Reportable 04/21/18 04:31 Adonay Bodies Not Reportable 04/21/18 04:31 Hem Pathologist Commnt No 04/21/18 04:31 PT 14.0 Sec. (12.2-14.9) 04/19/18 04:38 INR 1.04 (0.87-1.13) 04/19/18 04:38 VBG pH 7.463 (7.320-7.420) H 04/19/18 04:38 Sodium 140 mmol/L (137-145) 04/21/18 04:31 Potassium 4.5 mmol/L (3.6-5.0) 04/21/18 04:31 Chloride 107.3 mmol/L (98-107) H 04/21/18 04:31 Carbon Dioxide 21 mmol/L (22-30) L 04/21/18 04:31 Anion Gap 16 mmol/L 04/21/18 04:31 BUN 8 mg/dL (7-17) 04/21/18 04:31 Creatinine 0.8 mg/dL (0.7-1.2) 04/21/18 04:31 Estimated GFR > 60 ml/min 04/21/18 04:31 BUN/Creatinine Ratio 10 % 04/21/18 04:31 Glucose 180 mg/dL (65-100) H 04/21/18 04:31 Lactic Acid 1.10 mmol/L (0.7-2.0) 04/20/18 13:03 Calcium 8.2 mg/dL (8.4-10.2) L 04/21/18 04:31 Total Bilirubin 0.20 mg/dL (0.1-1.2) 04/19/18 04:38 AST 37 units/L (5-40) 04/19/18 04:38 ALT 21 units/L (7-56) 04/19/18 04:38 Alkaline Phosphatase 76 units/L (35-129) 04/19/18 04:38 Total Creatine Kinase 66 units/L (30-135) 04/20/18 04:25 CK-MB (CK-2) 11.7 ng/mL (0.0-4.0) H 04/20/18 04:25 CK-MB (CK-2) Rel Index 17.7 (0-4) H 04/20/18 04:25 Troponin T 0.271 ng/mL (0.00-0.029) H* D 04/20/18 04:25 Total Protein 5.8 g/dL (6.3-8.2) L 04/19/18 04:38 Albumin 2.7 g/dL (3.9-5) L 04/19/18 04:38 Albumin/Globulin Ratio 0.9 % 04/19/18 04:38 Triglycerides 72 mg/dL (2-149) 04/19/18 04:38 Cholesterol 122 mg/dL (50-199) 04/19/18 04:38 LDL Cholesterol Direct 81 mg/dL (50-130) 04/19/18 04:38 HDL Cholesterol 38 mg/dL (40-59) L 04/19/18 04:38 Cholesterol/HDL Ratio 3.21 % 04/19/18 04:38 Urine Color Yellow (Yellow) 04/19/18 05:24 Urine Turbidity Clear (Clear) 04/19/18 05:24 Urine pH 5.0 (5.0-7.0) 04/19/18 05:24 Ur Specific [place] 1.014 (1.003-1.030) 04/19/18 05:24 Urine Protein <15 mg/dl mg/dL (Negative) 04/19/18 05:24 Urine Glucose (UA) Neg mg/dL (Negative) 04/19/18 05:24 Urine Ketones Neg mg/dL (Negative) 04/19/18 05:24 Urine Blood Neg (Negative) 04/19/18 05:24 Urine Nitrite Neg (Negative) 04/19/18 05:24 Urine Bilirubin Neg (Negative) 04/19/18 05:24 Urine Urobilinogen < 2.0 mg/dL (<2.0) 04/19/18 05:24 Ur Leukocyte Esterase Tr (Negative) 04/19/18 05:24 Urine WBC (Auto) 8.0 /HPF (0.0-6.0) H 04/19/18 05:24 Urine RBC (Auto) 3.0 /HPF (0.0-6.0) 04/19/18 05:24 U Epithel Cells (Auto) 1.0 /HPF (0-13.0) 04/19/18 05:24 Urine Bacteria (Auto) 2+ /HPF (Negative) 04/19/18 05:24 Hyaline Casts 13 /LPF 04/19/18 05:24 Urine Mucus Few /HPF 04/19/18 05:24 Nutrition/Malnutrition Assess - Dietary Evaluation Nutrition/Malnutrition Findings: Nutrition Notes Start: 04/23/18 15:24 Freq: Status: Active Protocol: Document 04/23/18 15:25 RM (Rec: 04/23/18 15:32 RM [id number]) Nutrition Notes Need for Assessment generated from: MD Order Initial or Follow up Assessment Current Diagnosis COPD Other Pertinent Diagnosis Septic shock, UTI, SOB, R lower lobe pneu, toxic metabolic encephalopathy Current Diet Regular Labs/Tests Reviewed Pertinent Medications Solu-Medrol Height 5 ft 4 in Weight 58.967 kg Usual Body Weight 56.36 kg [place] Body Weight (kg) 54.54 BMI 22.3 Subjective/Other Information Consulted for poor oral intake . Pt stated that her appetite is poor. Stated that she normally eats 1-2 meals daily at home. Noted lunch with none eaten and partially drunk Ensure Original at bedside. Stated UBW was 123-125 lbs a couple of weeks ago. Noted temporal wasting. Burn Absent Trauma Absent #1 Nutrition Diagnosis Malnutrition Etiology decreased appetite, encephalopathy As Evidenced by Signs and Symptoms temporal wasting, pt statement that she normally eats 1-2 meals daily at home Is patient on ventilator? No Is Patient Ambulatory and/or Out of Bed No REE-([facility]-confined to bed) 1231.056 Kcal/Kg value to use for calculation 25 Approximate Energy Requirements Using 1474 kcal/Kg Calculation Used for Recommendations Kcal/kg Additional Notes Protein Needs: 71-89g (1.2-1. 5g/kg) Fluid Needs: 1 ml/kcal Nutrition Intervention Change Diet Order: Continue current Add Supplement/Snack (indicate name/kcal Ensure Enlive [place] 1 /protein ) daily Provides kCal: 350 Provides Protein (gm) 20 Goal #1 Meet at least 75% of calorie and protein needs via PO and ONS intakes Anticipated Discharge Needs: Regular diet Follow-Up By: 04/25/18 Additional Comments Follow for PO intakes, ONS intakes
[2018-04-25] MEDS ORDERED: ROBITUSSIN PO PRN (22:02)
[2018-04-26] MEDS: SOLU-Medrol IV SCH ×3 (06:25→23:13)
[2018-04-26] MEDS: SYNTHROID PO SCH (06:25)
[2018-04-26] MEDS: ZOSYN/NS 3.375GM/50ML 3.375 GM/50 ML BAG IV SCH ×3 (06:25→23:12)
[2018-04-26] MEDS: DUONEB *Not for PRN Use IH SCH ×3 (08:08→22:12)
[2018-04-26] MEDS: PULMICORT IH SCH ×2 (08:08→22:11)
[2018-04-26] MEDS: LOPRESSOR PO SCH ×2 (09:28→23:17)
[2018-04-26] MEDS: LOVENOX SUB-Q SCH (09:28)
[2018-04-26] MEDS: SODIUM CHLORIDE FLUSH SYRINGE 10 ML IV SCH ×2 (09:29→23:17)
--- NOTE | 2018-04-26 11:28 | Progress Note ---
Assessment and Plan Assessment and plan: Sepsis. Present on admission. Patient is criteria given the tachycardia, tachypnea and diagnosis of pneumonia. Continue sepsis pathway and follow-up blood cultures. Right lower lobe pneumonia with parapneumonic effusion. Continue IV antibiotics. Speech therapy evaluation. Follow up serial chest x-ray NSTEMI type II. Etiology secondary to above. Continue to follow repeat cardiac isoenzymes and EKG. Initial EKG shows no acute ischemic changes. Echocardiogram reveals EF 40-45%, impaired relaxation, mild MR, mod pulm HTN, mild MS. . Cardiology reports that we Can consider stress test once medically stabilized as OP. Acute hypoxemic respiratory failure. CTA of chest is negative for PE. Etiology secondary to pneumonia/pleural effusion. Continue O2 and supportive care. Wean O2 as tolerated. Repeat chest x-ray. Acute COPD exacerbation. Continue systemic and inhaled steroids, bro nchodilators and breathing treatments. Toxic metabolic encephalopathy. Continue to treat underlying causes. Disposition. Discussed with Case management. Patient and family interested in Home hospice. Arrangements ongoing. Likely dc tomorrow History Interval history: Less shortness of breath No chest pain Patient and family interested in home hospice Hospitalist Physical - Physical exam Narrative exam: GEN: Not in acute distress, lying in bed,ill looking HEENT: Normocephalic, atraumatic, Neck: supple, No JVD Lungs: Clear to auscultation bilaterally, no wheeze Heart:S1 and S2 regular, no murmurs, rubs or gallop, Abd:soft, non tender, non distended, normal bowel sounds Ext: No edema, no clubbing or cyanosis Neuro: Awake,alert, No focal signs Psych:Normal mood - Constitutional Vitals: Temp Pulse Resp BP Pulse Ox 98.6 F 89 18 147/78 96 04/26/18 08:16 04/26/18 08:18 04/26/18 08:18 04/26/18 08:15 04/26/18 09:32 General appearance: Present: other (lethargic) Results - Labs CBC & Chem 7: 04/21/18 04:31 04/21/18 04:31 Labs: Laboratory Last Values WBC 2.1 K/mm3 (4.5-11.0) L 04/21/18 04:31 RBC 3.34 M/mm3 (3.65-5.03) L 04/21/18 04:31 Hgb 10.4 gm/dl (10.1-14.3) 04/21/18 04:31 Hct 31.9 % (30.3-42.9) 04/21/18 04:31 MCV 96 fl (79-97) 04/21/18 04:31 MCH 31 pg (28-32) 04/21/18 04:31 MCHC 33 % (30-34) 04/21/18 04:31 RDW 15.0 % (13.2-15.2) 04/21/18 04:31 Plt Count 261 K/mm3 (140-440) 04/21/18 04:31 Lymph % (Auto) 7.7 % (13.4-35.0) L 04/19/18 04:38 [place] % (Auto) 6.8 % (0.0-7.3) 04/19/18 04:38 Eos % (Auto) 0.1 % (0.0-4.3) 04/19/18 04:38 Baso % (Auto) 0.3 % (0.0-1.8) 04/19/18 04:38 Lymph # 0.6 K/mm3 (1.2-5.4) L 04/19/18 04:38 [place] # 0.5 K/mm3 (0.0-0.8) 04/19/18 04:38 Eos # 0.0 K/mm3 (0.0-0.4) 04/19/18 04:38 Baso # 0.0 K/mm3 (0.0-0.1) 04/19/18 04:38 Add Manual Diff Complete 04/21/18 04:31 Total Counted 100 04/21/18 04:31 Seg Neutrophils % 85.1 % (40.0-70.0) H 04/19/18 04:38 Seg Neuts % (Manual) 61.0 % (40.0-70.0) 04/21/18 04:31 Band Neutrophils % 18.0 % 04/21/18 04:31 Lymphocytes % (Manual) 16.0 % (13.4-35.0) 04/21/18 04:31 Reactive Lymphs % (Man) 0 % 04/21/18 04:31 Monocytes % (Manual) 3.0 % (0.0-7.3) 04/21/18 04:31 Eosinophils % (Manual) 0 % (0.0-4.3) 04/21/18 04:31 Basophils % (Manual) 0 % (0.0-1.8) 04/21/18 04:31 Metamyelocytes % 0 % 04/21/18 04:31 Myelocytes % 2.0 % 04/21/18 04:31 Promyelocytes % 0 % 04/21/18 04:31 Blast Cells % 0 % 04/21/18 04:31 Nucleated RBC % Not Reportable 04/21/18 04:31 Seg Neutrophils # 6.6 K/mm3 (1.8-7.7) 04/19/18 04:38 Seg Neutrophils # Man 1.3 K/mm3 (1.8-7.7) L 04/21/18 04:31 Band Neutrophils # 0.4 K/mm3 04/21/18 04:31 Lymphocytes # (Manual) 0.3 K/mm3 (1.2-5.4) L 04/21/18 04:31 Abs React Lymphs (Man) 0.0 K/mm3 04/21/18 04:31 Monocytes # (Manual) 0.1 K/mm3 (0.0-0.8) 04/21/18 04:31 Eosinophils # (Manual) 0.0 K/mm3 (0.0-0.4) 04/21/18 04:31 Basophils # (Manual) 0.0 K/mm3 (0.0-0.1) 04/21/18 04:31 Metamyelocytes # 0.0 K/mm3 04/21/18 04:31 Myelocytes # 0.0 K/mm3 04/21/18 04:31 Promyelocytes # 0.0 K/mm3 04/21/18 04:31 Blast Cells # 0.0 K/mm3 04/21/18 04:31 WBC Morphology Not Reportable 04/21/18 04:31 Hypersegmented Neuts Not Reportable 04/21/18 04:31 Hyposegmented Neuts Not Reportable 04/21/18 04:31 Hypogranular Neuts Not Reportable 04/21/18 04:31 Smudge Cells Not Reportable 04/21/18 04:31 Toxic Granulation Not Reportable 04/21/18 04:31 Toxic Vacuolation Not Reportable 04/21/18 04:31 Dohle Bodies Not Reportable 04/21/18 04:31 Pelger-Huet Anomaly Not Reportable 04/21/18 04:31 Juan Alberto Rods Not Reportable 04/21/18 04:31 Platelet Estimate Appears normal 04/21/18 04:31 Clumped Platelets Not Reportable 04/21/18 04:31 Plt Clumps, EDTA Not Reportable 04/21/18 04:31 Large Platelets Rare 04/21/18 04:31 Giant Platelets Not Reportable 04/21/18 04:31 Platelet Satelliting Not Reportable 04/21/18 04:31 Plt Morphology Comment Not Reportable 04/21/18 04:31 RBC Morphology Not Reportable 04/21/18 04:31 Dimorphic RBCs Not Reportable 04/21/18 04:31 Polychromasia Not Reportable 04/21/18 04:31 Hypochromasia 1+ 04/21/18 04:31 Poikilocytosis Not Reportable 04/21/18 04:31 Anisocytosis 1+ 04/21/18 04:31 Microcytosis Not Reportable 04/21/18 04:31 Macrocytosis Not Reportable 04/21/18 04:31 Spherocytes Not Reportable 04/21/18 04:31 Pappenheimer Bodies Not Reportable 04/21/18 04:31 Sickle Cells Not Reportable 04/21/18 04:31 Target Cells Not Reportable 04/21/18 04:31 Tear Drop Cells Not Reportable 04/21/18 04:31 Ovalocytes Not Reportable 04/21/18 04:31 Helmet Cells Not Reportable 04/21/18 04:31 Dudley-Latimer Bodies Not Reportable 04/21/18 04:31 [place] Rings Not Reportable 04/21/18 04:31 Nury Cells Not Reportable 04/21/18 04:31 Bite Cells Not Reportable 04/21/18 04:31 Crenated Cell Not Reportable 04/21/18 04:31 Elliptocytes Not Reportable 04/21/18 04:31 Acanthocytes (Spur) Not Reportable 04/21/18 04:31 Rouleaux Not Reportable 04/21/18 04:31 Hemoglobin C Crystals Not Reportable 04/21/18 04:31 Schistocytes Not Reportable 04/21/18 04:31 Malaria parasites Not Reportable 04/21/18 04:31 Adonay Bodies Not Reportable 04/21/18 04:31 Hem Pathologist Commnt No 04/21/18 04:31 PT 14.0 Sec. (12.2-14.9) 04/19/18 04:38 INR 1.04 (0.87-1.13) 04/19/18 04:38 VBG pH 7.463 (7.320-7.420) H 04/19/18 04:38 Sodium 140 mmol/L (137-145) 04/21/18 04:31 Potassium 4.5 mmol/L (3.6-5.0) 04/21/18 04:31 Chloride 107.3 mmol/L (98-107) H 04/21/18 04:31 Carbon Dioxide 21 mmol/L (22-30) L 04/21/18 04:31 Anion Gap 16 mmol/L 04/21/18 04:31 BUN 8 mg/dL (7-17) 04/21/18 04:31 Creatinine 0.8 mg/dL (0.7-1.2) 04/21/18 04:31 Estimated GFR > 60 ml/min 04/21/18 04:31 BUN/Creatinine Ratio 10 % 04/21/18 04:31 Glucose 180 mg/dL (65-100) H 04/21/18 04:31 Lactic Acid 1.10 mmol/L (0.7-2.0) 04/20/18 13:03 Calcium 8.2 mg/dL (8.4-10.2) L 04/21/18 04:31 Total Bilirubin 0.20 mg/dL (0.1-1.2) 04/19/18 04:38 AST 37 units/L (5-40) 04/19/18 04:38 ALT 21 units/L (7-56) 04/19/18 04:38 Alkaline Phosphatase 76 units/L (35-129) 04/19/18 04:38 Total Creatine Kinase 66 units/L (30-135) 04/20/18 04:25 CK-MB (CK-2) 11.7 ng/mL (0.0-4.0) H 04/20/18 04:25 CK-MB (CK-2) Rel Index 17.7 (0-4) H 04/20/18 04:25 Troponin T 0.271 ng/mL (0.00-0.029) H* D 04/20/18 04:25 Total Protein 5.8 g/dL (6.3-8.2) L 04/19/18 04:38 Albumin 2.7 g/dL (3.9-5) L 04/19/18 04:38 Albumin/Globulin Ratio 0.9 % 04/19/18 04:38 Triglycerides 72 mg/dL (2-149) 04/19/18 04:38 Cholesterol 122 mg/dL (50-199) 04/19/18 04:38 LDL Cholesterol Direct 81 mg/dL (50-130) 04/19/18 04:38 HDL Cholesterol 38 mg/dL (40-59) L 04/19/18 04:38 Cholesterol/HDL Ratio 3.21 % 04/19/18 04:38 Urine Color Yellow (Yellow) 04/19/18 05:24 Urine Turbidity Clear (Clear) 04/19/18 05:24 Urine pH 5.0 (5.0-7.0) 04/19/18 05:24 Ur Specific [place] 1.014 (1.003-1.030) 04/19/18 05:24 Urine Protein <15 mg/dl mg/dL (Negative) 04/19/18 05:24 Urine Glucose (UA) Neg mg/dL (Negative) 04/19/18 05:24 Urine Ketones Neg mg/dL (Negative) 04/19/18 05:24 Urine Blood Neg (Negative) 04/19/18 05:24 Urine Nitrite Neg (Negative) 04/19/18 05:24 Urine Bilirubin Neg (Negative) 04/19/18 05:24 Urine Urobilinogen < 2.0 mg/dL (<2.0) 04/19/18 05:24 Ur Leukocyte Esterase Tr (Negative) 04/19/18 05:24 Urine WBC (Auto) 8.0 /HPF (0.0-6.0) H 04/19/18 05:24 Urine RBC (Auto) 3.0 /HPF (0.0-6.0) 04/19/18 05:24 U Epithel Cells (Auto) 1.0 /HPF (0-13.0) 04/19/18 05:24 Urine Bacteria (Auto) 2+ /HPF (Negative) 04/19/18 05:24 Hyaline Casts 13 /LPF 04/19/18 05:24 Urine Mucus Few /HPF 04/19/18 05:24 Nutrition/Malnutrition Assess - Dietary Evaluation Nutrition/Malnutrition Findings: Nutrition Notes Start: 04/23/18 15:24 Freq: Status: Active Protocol: Document 04/25/18 16:21 RM (Rec: 04/25/18 16:25 RM [id number]) Nutrition Notes Initial or Follow up Brief Note Current Diagnosis COPD Other Pertinent Diagnosis Septic shock, UTI, SOB, R lower lobe pneu, toxic metabolic encephalopathy Current Diet Regular Subjective/Other Information Pt stated that her appetite is poor and that she eats bites of her meals. Noted uneaten lunch,half drunk bottle of Ensure Enlive, and partially drunk Sprite at bedside. Nutrition Intervention Add Supplement/Snack (indicate name/kcal Ensure Enlive BID /protein ) Provides kCal: 700 Provides Protein (gm) 40 Follow-Up By: 04/28/18 Additional Comments Follow for PO and ONS intakes
[2018-04-27] MEDS: SYNTHROID PO SCH (06:24)
[2018-04-27] MEDS: ZOSYN/NS 3.375GM/50ML 3.375 GM/50 ML BAG IV SCH (06:24)
[2018-04-27] MEDS: SOLU-Medrol IV SCH (06:24)
[2018-04-27] MEDS: DUONEB *Not for PRN Use IH SCH (07:16)
[2018-04-27] MEDS: PULMICORT IH SCH (07:16)
[2018-04-27 08:20] VITALS: BP 141/77
--- NOTE | 2018-04-27 09:52 | Discharge Summary ---
Providers - Providers Date of Admission: 04/19/18 06:33 Date of discharge: 04/27/18 Attending physician: DESMOND VELA 04/22/18 11:20 Physical Therapy Evaluation and Treat [CONS] Routine Comment: Reason For Exam: deconditioning 04/22/18 18:10 Consult to Dietitian/Nutrition [CONS] Routine Physician Instructions: Reason For Exam: Reason for Consult: Poor oral intake 04/25/18 11:03 Consult to Case Management [CONS] Routine Services Needed at Discharge: Other Notified:: case management Comment:: Subacute Rehab placement Primary care physician: NESHA FRIEDMAN Hospitalization Condition: Fair Hospital course: Patient is 87 yo presented with shortness of breath. She was evaluated in ED found to have elevated Troponin of 0.42. Chest X ray revealed right lower lobe pneumonia. She was diagnosed with sepsis due to pneumonia, started on iv Antibiotics and admitted. Patient was evaluated by cardiology diagnosed with NSTEM type 2. She was also diagnosed with acute respiratory failure due to COPD exacerbation and pneumonia. For Antibiotics she was treated with vancomycin, Zosyn. She improved slowly, family decided on home with home hospice and she was discharged to home with home hospice on 04/27/18. Total time spent on discharge, 32 mins Disposition: DC-50 TO HOSPICE (HOME) - Discharge Diagnoses (1) Acute non-ST elevation myocardial infarction (NSTEMI) Status: Acute (2) COPD exacerbation Status: Acute (3) Pneumonia Status: Acute (4) COPD (chronic obstructive pulmonary disease) Status: Chronic (5) Sepsis Status: Suspected (6) Toxic metabolic encephalopathy Status: Acute Core Measure Documentation - Palliative Care Palliative Care/ Comfort Measures: Hospice Care - Core Measures Any of the following diagnoses?: none Exam - Constitutional Vitals: Temp Pulse Resp BP Pulse Ox 98.2 F 82 20 141/77 96 04/27/18 07:57 04/27/18 07:57 04/27/18 07:57 04/27/18 07:57 04/27/18 08:24 Plan Activity: advance as tolerated Diet: low fat, low cholesterol, low salt Special Instructions: home oxygen via ([place] at 2 l/min) Additional Instructions: 1.Follow up with PCP in 1 week. 2.Follow up with Hospice certified ophthalmic medical technician. 3.Continue home Oxygen at 2l/min Follow up with: NESHA FRIEDMAN MD [Primary Care Provider] - 3-5 Days Prescriptions: Aspirin EC [Aspirin Enteric Coated TAB] 81 mg PO QDAY #30 tablet. Famotidine [Pepcid] 20 mg PO BID #60 tablet guaiFENesin [Robitussin] 200 mg PO Q6H PRN #1 bottle PRN Reason: Cough Metoprolol [Lopressor TAB] 25 mg PO BID #60 tablet Prednisone [predniSONE 5 mg (6-Day Pack, 21 Tabs)] 5 mg PO .TAPER #1 tab.ds.pk
[2018-04-27] MEDS ORDERED: HALFPRIN EC PO SCH (11:00)
[2018-04-27] MEDS: LOPRESSOR PO SCH (11:03)
[2018-04-27] MEDS: LOVENOX SUB-Q SCH (11:03)
[2018-04-27] MEDS: SODIUM CHLORIDE FLUSH SYRINGE 10 ML IV SCH (11:04)
== END 2018-04-27 12:59 | disposition hospice, home (50) | DRG 871 ==
LOC: ED 04:16 → IMCU 06:33 → 4A 04-21 18:05
PROVIDERS: ADMIT Internal Medicine; ATTEND Internal Medicine
PROC: 5A09357 Assistance with Respiratory Ventilation, Less than 24 Consecutive Hours, Continuous Positive Airway Pressure (ICD-10-PCS; principal; 2018-04-24)
PROC: 5A09357 Assistance with Respiratory Ventilation, Less than 24 Consecutive Hours, Continuous Positive Airway Pressure (ICD-10-PCS; 2018-04-25)
PROC: 5A09357 Assistance with Respiratory Ventilation, Less than 24 Consecutive Hours, Continuous Positive Airway Pressure (ICD-10-PCS; 2018-04-27)
DX: A41.9 Sepsis, unspecified organism (principal); R65.21 Severe sepsis with septic shock; J96.01 Acute respiratory failure with hypoxia; J18.1 Lobar pneumonia, unspecified organism; I21.4 Non-ST elevation (NSTEMI) myocardial infarction; G92 Toxic encephalopathy; J44.0 Chronic obstructive pulmonary disease with (acute) lower respiratory infection; J44.1 Chronic obstructive pulmonary disease with (acute) exacerbation; N39.0 Urinary tract infection, site not specified; I27.20 Pulmonary hypertension, unspecified; I34.0 Nonrheumatic mitral (valve) insufficiency; Z88.5 Allergy status to narcotic agent; Z90.49 Acquired absence of other specified parts of digestive tract
CPT/HCPCS: 36415; 71045; 71046; 71275; 80048; 80053; 80061; 81001; 82140; 82550; 82553; 82805; 84484; 85007; 85025; 85610; 87040; 87076; 87086; 87186; 93005; 93010; 93306; 94640; 94660; 94760; 96361; 96365; G0378; J0696; J1650; J1940; J2060; J2543; J2920; J3370; J7030; J7040; Q0177; Q9967